=== PATIENT | male | born 1980 | race African-American/Black ===

== ENCOUNTER 2020-02-29 12:36 | Emergency (ER) | payer OTHER, SELFPAY ==
[2020-02-29 13:12] VITALS: BP 105/54; PULSE 73; RESP 18; TEMP 36.8; O2SAT 94; BMI 28.1
--- NOTE | 2020-02-29 13:24 | ED.HEATRA ---
HPI - Head Injury General Chief complaint: Head Injury Stated complaint: laceration above rt eye Time Seen by Provider: 02/29/20 13:23 Source: other (Health Aid) Mode of arrival: ambulatory Limitations: other (Menatl Health Issues) History of Present Illness HPI Narrative: 39 year old male brought in by health care worker s/p fall last night. He hit his head on the bed, now with headache and lac to right eyebrow. Per health care worker he did not lose conscipsness however patient is saygin he did [poor historian] Complaint: head injury Onset (ago): hour(s) (12) Mechanism of Injury: fall Place: home Loss of Consciousness: no Location of injury: face Severity: moderate Severity scale (1-10): 5 Quality: dull and aching Radiation: none Other Injuries: none Associated symptoms: other (headache) Related Data Allergies Allergy/AdvReac Type Severity Reaction Status Date / Time Penicillins [PENICILLINS] Allergy Unknown RASH Verified 02/29/20 13:12 Review of Systems Constitutional: Constitutional: Reports fever(s) (subjective), Denies headache(s) and Denies weakness Eyes: Eyes: Denies change in vision and Denies eye pain ENT: Reports Normal hearing present, Denies headache(s) and Denies sore throat Cardiovascular: Cardiovascular: Denies chest pain, Denies palpitations and Denies dyspnea Respiratory: Respiratory: Denies chest congestion, Denies cough, Denies dyspnea and Denies wheezing Gastrointestinal: Gastrointestinal: Denies abdominal pain, Denies change in bowel habits, Denies constipation, Denies diarrhea, Denies nausea and Denies vomiting Genitourinary: Genitourinary: Denies dysuria, Denies flank pain, Denies urinary frequency and Denies urinary incontinence Musculoskeletal: Musculoskeletal: Denies back pain, Denies myalgias and Denies muscle weakness Integumentary/Breasts: Skin/Breast: Denies change in hair, Denies pruritus, Denies erythema, Denies rash, Denies unusual bruising and Denies wounds Neurologic: Reports Normal hearing present, Denies headache(s), Denies memory loss, Denies paresthesias, Denies tremor(s) and Denies weakness Psychiatric: Psychiatric: Denies anxiety, Denies depression, Denies irritability and Denies memory loss Endocrine: Endocrine: Denies change in body appearance and Denies palpitations Hematologic/Lymphatic: Hematologic/Lymphatic: Denies easy bleeding, Denies easy bruising and Denies lymphadenopathy Allergic/Immunologic: Allergic/Immunologic: Denies wheezing PMFSH Past Medical History Medical History (Updated 02/29/20 @ 15:26 by LAURENCE Brady) Anxiety Autism Intellectual disability Intermittent explosive disorder in adult Social History Social History Advance Directives: No Advance Directives Information Provided: No Physical Exam Vital Signs: Vital Signs: Last Vital Signs Temp 98.2 F 02/29/20 13:12 Pulse 73 02/29/20 13:12 Resp 18 02/29/20 13:12 BP 105/54 L 02/29/20 13:12 Pulse Ox 94 02/29/20 13:12 Body Mass Index 28.1 Neuro: Cranial nerves: Yes Normal hearing present Course Course Course Narrative: 39 year old male comes in s.p fall last night. Headache and head lac. Discussed with my attending, will obtain imaging and then suture his lac Reevaluation(s) Reevaluation #1: Would not cooperate with suture repair depsite help from aid and ER staff. Changed course of action from sutures to glue Procedures Procedure Narrative Procedure Narrative: Was not able to suture due to uncooperative agitated patient. Agreed that gluing with steri strips would be okay as this lac occurred ? 12 hours ago. Are cleaned with betadine and sterile water. Dried off with sterile towel, dermabond applied generouslym egdes of lac were approximated and held together until glue started to take affect. Steristrips placed to secure and protect glue. Laceration Laceration 1: Site: face Size (cm): 3 Description: linear MDM - Head Injury MDM Narrative Medical decision making narrative: Lac to forehead s/p fall. Medical Records Attestation: I reviewed the patient's medical records. Imaging Data CT scan - head: Radiologist's impression: [address] [address] [address] Scan Report Signed Patient: Samuel PatrickMR#: [id number] : 1980Acct:[id number] Age/Sex: 39 / MADM Date: 02/29/20 Loc: HO.ED Attending Dr: Ordering Physician: ALEJANDRO CORTES Date of Service: 02/29/20 Procedure(s): CT head/brain wo con Accession Number(s): [id number] cc: ALEJANDRO CORTES~ EXAMINATION: CT HEAD WITHOUT CONTRAST CLINICAL INFORMATION: Headache, pain after fall. COMPARISON: None. TECHNIQUE: Contiguous helical images of the brain were obtained without IV contrast. Multiplanar reconstructions were performed. DLP: 813 mGy-cm. FINDINGS: There are no pathologic extra-axial fluid collections. The lateral, third, fourth ventricles are nondilated and concordant with the appearance of the sulci. There is no evidence for acute intraparenchymal hemorrhage or infarct. There is neither mass nor mass effect. There is no shift of midline structures. The paranasal sinuses and mastoid air cells are clear. There are no osseous lesions. CT/CT head/brain wo con IMPRESSION: No evidence for acute intracranial injury. Automated exposure control (Care Dose) Adjustment of the mA and/or kv according to patient size (this includes techniques or standardized protocols for targeted exams where dose is matched to indication / reason for exam; i.e. extremities or head). Dictated By:VERNELL MOON MD Signed By:<Electronically signed by VERNELL MOON MD in OV>02/29/20 1502 DD/ 1323 TD/TT: Corporate Banking Officer: WP Discharge Plan Discharge Clinical Impression: Laceration Patient Disposition: Home, Self-Care Instructions: Laceration (ED), Skin Adhesive Care (ED), Steristrips (ED) Additional Instructions: May have tylenol for any pain control
== END 2020-02-29 15:55 | disposition home or self-care (01) ==
PROVIDERS: Emergency Provider Emergency Medicine; PCP Internal Medicine
DX: S01.81XA Laceration without foreign body of other part of head, initial encounter (principal); W01.190A Fall on same level from slipping, tripping and stumbling with subsequent striking against furniture, initial encounter; Y93.9 Activity, unspecified; Y92.003 Bedroom of unspecified non-institutional (private) residence as the place of occurrence of the external cause; Y99.9 Unspecified external cause status
CPT/HCPCS: 12013; 70450; 99284

== ENCOUNTER → 2020-08-18 14:06 | Outpatient (REF) | payer OTHER, SELFPAY ==
--- NOTE | 2020-08-18 14:00 | CA_ITS ---
Transthoracic Echocardiogram Amended Patient (Last, First, Middle): Samuel Patrick, Gender: Male Date of : 1980 Age: 39 Procedure Date: 08/18/2020 Procedure Type: Transthoracic Echocardiogram Location: OP Height: 170.18 cm Weight: 99.79 kg BSA: 2.11 m2 Heart Rate: bpm BP: 120 / 72 mmHg Belt Cleaner: TENZIN Referring MD: Nupur DANG Bowling Pin Refinisher: Artis Perez MD Symptoms: R01.1 CARDIAC MURMUR Study Quality: Technically Difficult ECG Rhythm: Sinus Conclusions: - 1. Normal LV systolic and diastolic function 2. Aortic valve not well visualized with increased gradient of unclear etiology with mild aortic regurgitation 3. No gross pericardial effusion Findings Left Ventricle Normal left ventricular size, thickness, and systolic function. The visually estimated ejection fraction is between 60-65%. Diastolic function is normal for age. Right Ventricle Normal right ventricular cavity size. Atria The left atrium is normal in size. Interatrial shunt cannot be excluded. The right atrium was not well visualized. Aortic Valve The aortic valve was not well visualized. The peak aortic gradient is 21 mmHg.The mean gradient is 15 mmHg. There is mild aortic valve regurgitation. There is increased gradient across the aortic valve of unclear etiology. Early aortic stenosis cannot be ruled out Mitral Valve Likely normal mitral valve structure and function. There is trace mitral valve regurgitation. There is no mitral valve stenosis. Pulmonic Valve The pulmonic valve was not well visualized. Tricuspid Valve The tricuspid valve was not well visualized. Great Vessels All visible segments of the aorta are normal in size. The pulmonary artery was not well visualized. Venous The inferior vena cava was not well visualized. Pericardium/Pleural There is no evidence of pericardial effusion. Prior Study Comparison No significant change compared to prior study dated: 01/01/2018. Measurements 2D Linear Measurements IVSd: 1.23 0.6-0.9/0.6-1.0 cm LVIDd: 4.68 3.9-5.3/4.2-5.9 cm LVIDd Index: 2.22 2.4-3.2/2.2-3.1 cm/m2 LVIDs: 3.71 2.0-3.6 cm LVPWd: 1.06 0.7-1.1 cm Ao Root: 2.80 2.1-3.5 cm LA Diam: 3.00 2.7-3.8/3.0-4.0 cm LAIDs Index: 1.42 1.5-2.3 cm/m2 LV Mass: 245.55 67-162/88-224 g LV Mass Index: 116.37 43-95/49-115 g/m2 LVOT Diam: 2.20 3.0+(-)1.3 cm 2D Volumes LA Vol: 15.70 2D Systolic Function EF 4C: 71.00 >55% Mitral Valve MV Pk E: 0.72 MV PK A: 0.61 MV Decel Time: 127.00 E/A: 1.20 PHT: 37.00 MVA PHT: 5.95 Decel Person: 5.66 Aortic Valve AoV Pk Miguel Angel: 2.27 AoV Mn Miguel Angel: 1.79 AoV VTI: 0.46 AoV Pk Grad: 21.00 Aov Mn Grad: 15.00 PORTIA Cont.VTI: 2.21 AI Pk Miguel Angel: 4.67 AI Person: 2.32 LVOT LVOT Pk Miguel Angel: 1.54 LVOT Mn Miguel Angel: 1.10 LVOT VTI: 0.27 LVOT Pk Grad: 9.00 LVOT Mn Grad: 6.00 LVOT Diam: 2.20 LVOT Area: 3.80 Diastolic Function MV Pk E: 0.72 MV Pk A: 0.61 E/A: 1.20 Great Vessels Aorta Ao Root-2D: 2.80 2.0-3.7 cm Ao Asc: 2.90 2.1-3.4 cm Updated in Other Vendor System with Status of Final Artis Perez MD electronically signed on 08/19/2020 1:02:57 PM with status of Final
== END ==
LOC: HO.CARD 14:06
PROVIDERS: PCP Internal Medicine; Visit Provider Physician Assistant
DX: R01.1 Cardiac murmur, unspecified (principal)
CPT/HCPCS: 93306

== ENCOUNTER → 2021-11-17 09:39 | Outpatient (BNVA) | payer OTHER, SELFPAY | PROVIDERS: PCP Internal Medicine; Referring Provider Internal Medicine; Visit Provider Internal Medicine Cardiovascular Disease | DX: I48.92 Unspecified atrial flutter (principal) | CPT/HCPCS: 93005 ==

== ENCOUNTER → 2022-01-05 14:09 | Outpatient (REF) | payer OTHER, SELFPAY ==
--- NOTE | 2022-01-05 14:13 | HM_ITS ---
Conclusion: 1. Patient was monitored for total period of 4 days and 12 hours 2. Baseline rhythm was normal sinus rhythm with average heart of 79 beats per minute 3. Total of 443 PACs accounting for 0.13% of total beats account for occasional PACs 4. Rare PVCs noted with total burden of 0.07% 5. No significant pauses or bradycardia noted 6. No patient reported events MTDD
--- NOTE | 2022-01-05 14:13 | CA_ITS ---
Transthoracic Echocardiogram Amended Patient (Last, First, Middle): Samuel Patrick, Gender: Male Date of : 1980 Age: 41 Procedure Date: 01/05/2022 Procedure Type: Transthoracic Echocardiogram Location: OP Height: 172. cm Weight: 108. kg BSA: 2.19 m2 Heart Rate: bpm BP: 140 / 80 mmHg Supervisor Transferring And Boxing: LATANYA Referring MD: Mike Ward MD Symptoms: I48.92 - Unspecified atrial flutter Study Quality: Fair ECG Rhythm: Sinus Conclusions: - Small calcified structure attached to the aortic valve. Differentials include vegetation and we will start with checking blood cultures. Findings Left Ventricle Normal left ventricular size, thickness, systolic function, and wall motion. The visually estimated ejection fraction is between 55-60%. There is no evidence of regional wall motion abnormalities. Diastolic function is normal for age. Right Ventricle Normal right ventricular cavity size and systolic function. Atria Both atria are normal in size. Aortic Valve There is a normal trileaflet aortic valve. There is no aortic valve stenosis. There is mild to moderate aortic valve regurgitation. small mobile mass attached to the aortic valve. Mitral Valve The mitral valve appears normal. There is no mitral valve regurgitation. There is no mitral valve stenosis. Pulmonic Valve The pulmonic valve is likely normal. Tricuspid Valve Normal tricuspid valve structure and function. There is trace tricuspid valve regurgitation. Normal right atrial pressure. There is no evidence of pulmonary hypertension. Great Vessels The pulmonary artery was not well visualized. There is mild dilatation of the ascending aorta measuring 3.40 cm. Venous The inferior vena cava is normal in size and collapses greater than 50% with inspiration. Pericardium/Pleural There is no evidence of pericardial effusion. Prior Study Comparison Changes noted compared to prior study dated: 08/18/2021. Small calcified structure attached to the aortic valve. Measurements 2D Linear Measurements IVSd: 1.10 0.6-0.9/0.6-1.0 cm LVIDd: 4.75 3.9-5.3/4.2-5.9 cm LVIDd Index: 2.17 2.4-3.2/2.2-3.1 cm/m2 LVIDs: 3.09 2.0-3.6 cm LVPWd: 0.95 0.7-1.1 cm Ao Root: 3.80 2.1-3.5 cm LA Diam: 3.50 2.7-3.8/3.0-4.0 cm LAIDs Index: 1.60 1.5-2.3 cm/m2 LV Mass: 215.12 67-162/88-224 g LV Mass Index: 98.23 43-95/49-115 g/m2 LVOT Diam: 2.30 3.0+(-)1.3 cm 2D Volumes LA Vol: 15.80 2D Systolic Function EF 4C: 48.70 >55% EF 2C: 54.70 >55% EF BiP: 51.10 >55% Mitral Valve MV Pk E: 0.92 MV PK A: 0.84 MV Decel Time: 213.00 E/A: 1.10 E'Lateral: 10.20 E'Medial: 9.79 E/E' Med: 9.40 E/E' Lat: 9.10 PHT: 62.00 MVA PHT: 3.55 Decel Bell: 4.34 Aortic Valve AoV Pk Miguel Angel: 1.96 AoV Mn Miguel Angel: 1.41 AoV VTI: 0.35 AoV Pk Grad: 15.00 Aov Mn Grad: 9.00 PORTIA Cont.VTI: 4.08 AI Pk Miguel Angel: 4.46 AI Bell: 2.11 LVOT LVOT Pk Miguel Angel: 1.93 LVOT Mn Miguel Angel: 1.33 LVOT VTI: 0.34 LVOT Pk Grad: 15.00 LVOT Mn Grad: 8.00 LVOT Diam: 2.30 LVOT Area: 4.15 Diastolic Function MV Pk E: 0.92 MV Pk A: 0.84 E/A: 1.10 E'Medial: 9.79 E/E' Med: 9.40 E' Laterial: 10.20 E/E' Lat: 9.10 Right Ventricle TAPSE (mm): 18.00 Tricuspid Valve TR Pk Miguel Angel: 2.00 TR Pk Grad: 16.00 RA Press: 2.00 RVSP: 19.00 Great Vessels Aorta Ao Root-2D: 3.80 2.0-3.7 cm Ao Asc: 3.40 2.1-3.4 cm Pulmonary Valve PV Pk Miguel Angel: 1.07 Peak PV Grad: 5.00 Updated in Other Vendor System with Status of Final Mike Ward MD electronically signed on 01/20/2022 9:29:01 AM with status of Final
== END ==
LOC: HO.CARD 14:09
PROVIDERS: Visit Provider Internal Medicine Cardiovascular Disease
DX: I48.92 Unspecified atrial flutter (principal)
CPT/HCPCS: 93242; 93306

== ENCOUNTER 2022-01-06 11:39 | Outpatient (REF) | payer OTHER, SELFPAY ==
[2022-01-06 13:22] LABS: TSH reflex Free T4 3.15 uIU/mL (0.32-4.0)
== END 2022-01-06 11:40 | disposition home or self-care (01) ==
LOC: HO.LAB 11:39
PROVIDERS: PCP Internal Medicine; Visit Provider Internal Medicine Cardiovascular Disease
DX: I48.92 Unspecified atrial flutter (principal); I35.8 Other nonrheumatic aortic valve disorders
CPT/HCPCS: 36415; 84443; 87040

== ENCOUNTER → 2022-07-12 13:12 | Outpatient (BNVA) | payer SELFPAY | PROVIDERS: PCP Internal Medicine; Referring Provider Internal Medicine; Visit Provider Internal Medicine Cardiovascular Disease | DX: I35.1 Nonrheumatic aortic (valve) insufficiency (principal); I48.92 Unspecified atrial flutter; E78.5 Hyperlipidemia, unspecified | CPT/HCPCS: 93005 ==

== ENCOUNTER 2023-01-02 13:20 | Outpatient (AMB) | payer OTHER, SELFPAY ==
[2023-01-02 13:23] VITALS: BP 112/74; PULSE 76; BMI 34.6
--- NOTE | 2023-01-02 13:23 | A.OFFVIS_ITS ---
Intake Vital Signs 01/02/23 13:23 Height 5 ft 7 in Weight 220 lb 14.451 oz BMI 34.6 BP 112/74 Blood Pressure Location Lt brachial Position Sitting Pulse 76 Pulse Source Pulse Oximeter Intake Visit Reasons: 6 months f/ up after testing Intake Note: 6 month follow up after testing. Metrologist Required: No Accompanied by: Employee Allergies Penicillins [PENICILLINS] Allergy (Unknown, Verified 01/02/23 13:26) RASH Medication List - Last Reconciled 01/02/23 by Mike Ward MD acetaminophen ER (Tylenol 8 Hour) 650 mg PO Q8H atorvastatin 40 mg PO BEDTIME dextromethorphan-guaifenesin 10-200 mg 2 tab-caps PO Q4-6H PRN diltiazem HCl ER 120 mg PO QAM divalproex (Depakote) 750 mg PO ONCE divalproex (Depakote) 1,000 mg PO ONCE fenofibrate 54 mg PO DAILY Lactobac. rhamnosus GG-inulin 10 billion cell -200 mg ([facility] [employer] [facility]) caps PO loratadine (Allergy Relief (loratadine)) 10 mg PO DAILY lorazepam (Ativan) 0.5 mg PO DAILY PRN lorazepam (Ativan) 1 mg PO BID PRN jqxzkkfa-fqg-huutqte sulfate 4.5 mg iron (One Daily Multivitamins with Minerals) tabs PO DAILY nystatin (Nyamyc) 1 appl topical DAILY paroxetine HCl (Paxil) 40 mg PO DAILY polyethylene glycol 3350 (Miralax) 17 grams PO DAILY psyllium husk 0.52 grams PO TID HPI HPI Comments History of Present Illness Details 42-year-old gentleman who is here for fo llow-up. He has background history of autism and cerebral palsy. He was diagnosed with atrial flutter previously but this was episodic and he has not been atrial flutter since then. History is limited from the patient in general. He was seen and was referred for echocardiography and Holter monitoring. Holter did not show any significant arrhythmia. He has been on Cardizem. Echocardiography showed that he has [id number] aortic insufficiency as well as calcification on aortic valve. In some views it looks like a calcified structure attached to the valve. I have reviewed all his previous echocardiogram going back to 2017 and he had some calcification present on the aortic valve. I also did blood cultures on him to make sure he does not have any active blood stream infection and blood cultures were normal. He is back for follow-up. He is doing well. No concerns currently. 01/02/2023: He returns for follow-up. Bl ood pressure control is good. Denying any symptoms. On last visit we advised him to get a fasting lipid panel. It appears he did not have any blood workup. [facility] Medical History (Updated 07/12/22 @ 13:40 by Mike Ward MD) Intellectual disability Intermittent explosive disorder in adult Autism Anxiety Social History Alcohol intake: never Patient Tobacco Use Status: Never used Tobacco Review of Systems Const Denies weakness ENT Denies dizziness Card Denies chest pain, Denies chest pain with activity, Denies syncope, Denies rapid heart rate, Denies pedal edema, Denies edema, Denies leg edema, Denies lightheadedness, Denies palpitations, Denies dyspnea, Denies dyspnea on exertion and Denies orthopnea Resp Denies cough, Denies dyspnea and Denies dyspnea on exertion GI Denies hematochezia and Denies change in stool character Musc Denies abnormal gait, Denies muscle cramps, Denies muscle weakness, Denies numbness, Denies radiating pain into limb and Denies tingling Neuro Denies abnormal gait, Denies dizziness, Denies syncope, Denies numbness, Denies tingling and Denies weakness Endo Denies palpitations Physical Exam Vital Signs: Last Vital Signs Pulse 76 01/02/23 13:23 BP 112/74 01/02/23 13:23 BMI result Body Mass Index 34.6 GENERAL APPEARANCE: in no acute distress NECK: no carotid bruit, no jugular venous distention. SKIN: no suspicious lesions, warm and dry. HEART: no murmurs, regular rate and rhythm. LUNGS: clear to auscultation bilaterally. ABDOMEN: soft, nontender. EXTREMITIES: no edema. PERIPHERAL PULSES: equal. Assessment & Plan Assessment & Plan (1) Hyperlipidemia: Code(s): E78.5 - Hyperlipidemia, unspecified (2) Aortic insufficiency: Code(s): I35.1 - Nonrheumatic aortic (valve) insufficiency (3) Atrial flutter: Code(s): I48.92 - Unspecified atrial flutter Plan [age] gentleman with history of paroxysmal atrial flutter. He has not had any further episodes. Denying any symptoms on follow-up. Blood pressure control is good. He should continue with the Cardizem 120 mg daily. He is on atorvastatin 40 mg as well as fenofibrate 54 mg. He should have fasting lipid panel once a year. Follow-up with us in 1 year. Thank you for allowing me to participate in the care of your patient. Please feel free to contact me if you have any questions. Coding Level of Care Code Est Pt Level 3 (96042) Diagnoses Hyperlipidemia E78.5 Aortic insufficiency I35.1 Atrial flutter I48.92
== END 2023-01-02 13:46 | disposition home or self-care (01) ==
PROVIDERS: PCP Internal Medicine; Referring Provider Internal Medicine; Visit Provider Internal Medicine Cardiovascular Disease
DX: E78.5 Hyperlipidemia, unspecified (principal); I35.1 Nonrheumatic aortic (valve) insufficiency; I48.92 Unspecified atrial flutter
CPT/HCPCS: 99213

== ENCOUNTER → 2023-01-02 13:20 | Outpatient (BNVA) | payer OTHER, SELFPAY | PROVIDERS: PCP Internal Medicine; Referring Provider Internal Medicine; Visit Provider Internal Medicine Cardiovascular Disease ==

== ENCOUNTER 2023-03-23 13:39 | Outpatient (AMB) | payer OTHER, SELFPAY ==
[2023-03-23 13:47] VITALS: BP 120/72; PULSE 72; BMI 34.5
--- NOTE | 2023-03-23 13:47 | MHC.OFFVIS ---
Intake Vital Signs 03/23/23 13:47 Height 5 ft 7 in Weight 220 lb 7.396 oz BMI 34.5 BP 120/72 Blood Pressure Location Lt brachial Position Sitting Pulse 72 Pulse Source Pulse Oximeter Intake Visit Reasons: FU/DC from ER/SVT Accounts Receivable Accountant: Accounts Receivable Accountant Present Accompanied by: Unknown Allergies Penicillins [PENICILLINS] Allergy (Unknown, Verified 03/23/23 13:49) RASH Medication List - Last Reconciled 03/23/23 by KARLO Gandhi acetaminophen ER (Tylenol 8 Hour) 650 mg PO Q8H atorvastatin 40 mg PO BEDTIME dextromethorphan-guaifenesin 10-200 mg 2 tab-caps PO Q4-6H PRN diltiazem HCl ER 120 mg PO QAM divalproex (Depakote) 750 mg PO ONCE divalproex (Depakote) 1,000 mg PO ONCE fenofibrate 54 mg PO DAILY Lactobac. rhamnosus GG-inulin 10 billion cell -200 mg ([facility] [place]) caps PO loratadine (Allergy Relief (loratadine)) 10 mg PO DAILY lorazepam (Ativan) 0.5 mg PO DAILY PRN lorazepam (Ativan) 1 mg PO BID PRN pkgfbdcf-dhf-kcxkaru sulfate 4.5 mg iron (One Daily Multivitamins with Minerals) tabs PO DAILY nystatin (Nyamyc) 1 appl topical DAILY paroxetine HCl (Paxil) 40 mg PO DAILY polyethylene glycol 3350 (Miralax) 17 grams PO DAILY psyllium husk 0.52 grams PO TID HPI FU/DC from ER/SVT HPI Details Samuel is a 42-year-old male with past medical history obesity, hyperlipidemia, atrial flutter, moderate aortic regurgitation who was recently admitted to [facility] with heart palpitations. He was found to have SVT with heart rate to 60 and hypotension. Cardioversion was done with successful return to normal sinus rhythm. He was monitored on telemetry. Diltiazem dose increased to 180 mg daily. Today he reports that he has not had heart palpitations since his hospital discharge. On the day of his admission he says the palpitations occurred suddenly and persisted. He recalls feeling some mild shortness of breath at that time. No presyncope, syncope, falls. No chest discomfort at rest or with activity. He has not been having any PND, orthopnea or edema. He is taking his medications as directed. boom stick worker is present with him. [facility], [facility] Medical History Intellectual disability Intermittent explosive disorder in adult Autism Anxiety Social History Alcohol intake: never Patient Tobacco Use Status: Never used Tobacco Review of Systems Const All systems reviewed & are unremarkable except as noted in HPI and below and Other ENT Denies dizziness Card Denies chest pain, Denies chest pain at rest, Denies chest pain with activity, Denies rapid heart rate, Denies pedal edema, Denies edema, Denies leg edema, Denies lightheadedness, Reports palpitations, Denies dyspnea, Denies dyspnea on exertion and Denies orthopnea Resp Denies cough, Denies dyspnea and Denies dyspnea on exertion GI Denies hematochezia and Denies change in stool character Musc Denies abnormal gait, Denies limited range of motion, Denies muscle cramps, Denies muscle weakness, Denies numbness, Denies radiating pain into limb, Denies stiffness and Denies tingling Neuro Denies abnormal gait, Denies dizziness, Denies numbness and Denies tingling Endo Reports palpitations Physical Exam Vital Signs: Last Vital Signs Pulse 72 03/23/23 13:47 BP 120/72 03/23/23 13:47 BMI result Body Mass Index 34.5 Const General: cooperative, comfortable and no acute distress Orientation/consciousness: patient oriented x3 Neck Neck: Yes normal visual inspection Resp Effort & Inspection: normal respiratory effort Auscultation: clear to auscultation bilaterally, no crackles, no rales, no rhonchi and no wheezes Cardio Jugular venous distension: no JVD Rate: regular rate Rhythm: regular rhythm Heart sounds: S1 normal heart sound present, S2 normal heart sound present, Murmur heart sound present (systolic murmur noted) and no rubs Neuro General: patient oriented x3 Extrem General: Yes normal to inspection, No no pedal edema and No calf tenderness Psych Other: intellectual disability Appearance: grossly normal Mental Status: mental status grossly normal Speech and movement: Normal speech and movement present Assessment & Plan Assessment & Plan (1) Atrial fibrillation: Code(s): I48.91 - Unspecified atrial fibrillation Plan: History of atrial flutter, paroxysmal. Last echo in our system 01/05/2022 shows EF 55-60%, no wall motion abnormalities, small calcified structure tach to aortic valve, [id number] aortic regurgitation. Last Holter monitor done 01/05/2022 for 4 days showed sinus rhythm with average heart rate 79, occasional PACs and rare PVCs. Recent [facility] admission for reported SVT rate 160. It is possible this was atrial flutter, with 1-1 block. He was hypotensive and underwent cardioversion with successful conversion back to sinus rhythm. [facility] discharge note reviewed. Note does not mention atrial fibrillation however EKG done on him during admission 03/13/2023 shows atrial fibrillation, rate 116. On discharge his diltiazem dose had been increased from 120 mg of do 180 mg daily. He is not on anticoagulation due to low stroke risk, chads Vasc score of 0. Today he reports he has been feeling well with no recurrent heart palpitations. Pulse is regular on examination. No concern for AFib at this time. Will continue on current diltiazem. Will check Holter monitor to assess for recurrent PAF/SVT. Will update echocardiogram to assess EF, valve structures. Cardiology follow-up in 2 months to go over results and adjust meds if needed. (2) Atrial flutter: Code(s): I48.92 - Unspecified atrial flutter Plan: As above (3) SVT (supraventricular tachycardia): Code(s): I47.10 - Supraventricular tachycardia, unspecified Plan: As above. (4) Aortic insufficiency: Code(s): I35.1 - Nonrheumatic aortic (valve) insufficiency Plan: [id number] on last echocardiogram. Murmurs noted on exam. Will update echo. (5) Aortic valve calcification: Code(s): I35.9 - Nonrheumatic aortic valve disorder, unspecified Plan: As above (6) Hospital discharge follow-up: Code(s): Z09 - Encounter for follow-up examination after completed treatment for conditions other than malignant neoplasm Plan: [facility] discharge 03/13/2023 Plan Time spent on chart review, documentation, interview, assessment Orders: Orders ECG 3 day holter monitor Today I47.10 - Supraventricular tachycardia, unspecified, I48.91 - Unspecified atrial fibrillation CA echo transthoracic complete Today I35.1 - Nonrheumatic aortic (valve) insufficiency, I35.9 - Nonrheumatic aortic valve disorder, unspecified, I48.91 - Unspecified atrial fibrillation Coding Level of Care Code Est Pt Level 4 (71407) Diagnoses Atrial fibrillation I48.91 Atrial flutter I48.92 SVT (supraventricular tachycardia) I47.10 Aortic insufficiency I35.1 Aortic valve calcification I35.9 Hospital discharge follow-up Z09 Time Spent (min) 28
== END 2023-03-23 14:42 | disposition home or self-care (01) ==
PROVIDERS: PCP Internal Medicine; Visit Provider Nurse Practitioner Family
DX: I48.91 Unspecified atrial fibrillation (principal); I48.92 Unspecified atrial flutter; I47.10 Supraventricular tachycardia, unspecified; I35.1 Nonrheumatic aortic (valve) insufficiency; I35.9 Nonrheumatic aortic valve disorder, unspecified; Z09 Encounter for follow-up examination after completed treatment for conditions other than malignant neoplasm
CPT/HCPCS: 99214

== ENCOUNTER → 2023-03-23 13:39 | Outpatient (BNVA) | payer OTHER, SELFPAY | PROVIDERS: PCP Internal Medicine; Visit Provider Nurse Practitioner Family ==

== ENCOUNTER → 2023-04-14 09:51 | Outpatient (REF) | payer OTHER, SELFPAY ==
--- NOTE | 2023-04-14 09:56 | HM_ITS ---
* Total monitoring time 3 days. * Underlying rhythm is sinus with an average rate of 68/Min. Range 50 to 156/Min. * Rare supraventricular ectopy. * Rare ventricular ectopy. Occasional couplets, 1 triplet. Evidence of bigeminy. 2 short runs. Longest 4 beats. * No significant pauses or AV blocks. * No patient markers or events in diary. MTDD
--- NOTE | 2023-04-14 09:56 | CA_ITS ---
Transthoracic Echocardiogram Patient (Last, First, Middle): Samuel Patrick, Gender: Male Date of : 1980 Age: 42 Procedure Date: 04/14/2023 Procedure Type: Transthoracic Echocardiogram Location: OP Height: 172.72 cm Weight: 105.01 kg BSA: 2.18 m2 Heart Rate: 69 bpm BP: 125 / 70 mmHg Assisted Living Coordinator: LATANYA Referring MD: Marily Vela NP-Grazyna Psychological Aide: Artis Perez MD Symptoms: I48.91 - Unspecified atrial fibrillation Study Quality: Technically Difficult ECG Rhythm: Sinus Conclusions: - 1. Normal LV ejection fraction of 60 65% 2. Mild calcific changes noted in the aortic well although not well visualized, mild aortic regurgitation noted 3. Mildly dilated ascending aorta 4.1 cm Findings Procedure Information The quality of the study was technically difficult. The study quality is limited by the patients inability to tolerate the test. Left Ventricle Normal left ventricular size, thickness, and systolic function. The visually estimated ejection fraction is between 60-65%. Spectral Doppler is indicative of a normal filling pattern. Right Ventricle Normal right ventricular cavity size and systolic function. Atria The left atrium is normal in size. Interatrial shunt cannot be excluded. The right atrium is normal in size. Aortic Valve The aortic valve was not well visualized. There is mild calcification of the aortic valve. There is moderate thickening of the aortic valve. The peak aortic gradient is 14 mmHg.The mean gradient is 9 mmHg. There is mild aortic valve regurgitation. Mitral Valve The mitral valve was not well visualized. There is no mitral valve regurgitation. There is no mitral valve stenosis. Pulmonic Valve The pulmonic valve was not well visualized. Tricuspid Valve The tricuspid valve was not well visualized. Tricuspid regurgitation envelope is inadequate for calculation of right ventricular systolic pressure. Normal right atrial pressure. Great Vessels The pulmonary artery was not well visualized. There is mild dilatation of the ascending aorta measuring 4.10 cm. Venous The inferior vena cava is normal in size and collapses greater than 50% with inspiration. Pericardium/Pleural The pericardium was not well visualized. Measurements 2D Linear Measurements IVSd: 1.10 0.6-0.9/0.6-1.0 cm LVIDd: 4.82 3.9-5.3/4.2-5.9 cm LVIDd Index: 2.21 2.4-3.2/2.2-3.1 cm/m2 LVIDs: 3.30 2.0-3.6 cm LVPWd: 1.15 0.7-1.1 cm LA Diam: 3.70 2.7-3.8/3.0-4.0 cm LAIDs Index: 1.70 1.5-2.3 cm/m2 LV Mass: 251.07 67-162/88-224 g LV Mass Index: 115.17 43-95/49-115 g/m2 LVOT Diam: 2.50 3.0+(-)1.3 cm 2D Systolic Function EF 4C: 62.20 >55% EF 2C: 61.00 >55% EF BiP: 62.40 >55% Mitral Valve MV Pk E: 0.91 MV PK A: 0.48 MV Decel Time: 203.00 E/A: 1.90 E'Lateral: 8.27 E'Medial: 8.27 E/E' Med: 11.00 E/E' Lat: 11.00 PHT: 60.00 MVA PHT: 3.67 Decel Graham: 4.47 Aortic Valve AoV Pk Miguel Angel: 1.89 AoV Mn Miguel Angel: 1.39 AoV VTI: 0.39 AoV Pk Grad: 14.00 Aov Mn Grad: 9.00 PORTIA Cont.VTI: 4.42 AI Pk Miguel Angel: 4.46 AI Graham: 2.28 LVOT LVOT Pk Miguel Angel: 1.75 LVOT Mn Miguel Angel: 1.24 LVOT VTI: 0.35 LVOT Pk Grad: 12.00 LVOT Mn Grad: 7.00 LVOT Diam: 2.50 LVOT Area: 4.91 Diastolic Function MV Pk E: 0.91 MV Pk A: 0.48 E/A: 1.90 E'Medial: 8.27 E/E' Med: 11.00 E' Laterial: 8.27 E/E' Lat: 11.00 Right Ventricle TAPSE (mm): 22.90 TVS' Miguel Angel: 14.90 Great Vessels Aorta Sinus of Valsalva: 3.50 2.0-3.5 cm Ao Asc: 4.10 2.1-3.4 cm Pulmonary Valve PV Pk Miguel Angel: 1.33 Peak PV Grad: 7.00 Updated in Other Vendor System with Status of Final Artis Perez MD electronically signed on 04/14/2023 1:54:49 PM with status of Final
== END ==
LOC: HO.CARD 09:51
PROVIDERS: PCP Internal Medicine; Visit Provider Nurse Practitioner Family
DX: I48.91 Unspecified atrial fibrillation (principal); I35.1 Nonrheumatic aortic (valve) insufficiency; I47.10 Supraventricular tachycardia, unspecified
CPT/HCPCS: 93242; 93306

== ENCOUNTER → 2023-04-14 09:56 | Outpatient (BNV) | payer OTHER, SELFPAY | PROVIDERS: PCP Internal Medicine; Visit Provider Internal Medicine Cardiovascular Disease | DX: I47.10 Supraventricular tachycardia, unspecified (principal) | CPT/HCPCS: 93244; 93306 ==

== ENCOUNTER 2023-04-21 13:28 | Outpatient (REF) | payer OTHER, SELFPAY ==
[2023-04-21 14:27] LABS: Valproate 52.6 mcg/mL (50.0-100.0)
[2023-04-21 14:32] LABS: Alanine Aminotransferase 17 U/L (0-40); Albumin Level 4.1 g/dL (3.5-5.0); Alkaline Phosphatase 40 U/L (39-117); Aspartate Amino Transferase 16 U/L (5-37); Bilirubin Direct 0.1 mg/dL (0.0-0.5); Bilirubin Total 0.4 mg/dL (0.0-1.0); Total Protein 7.3 g/dL (6.5-8.0)
== END 2023-04-21 13:29 | disposition home or self-care (01) ==
LOC: HO.LAB 13:28
PROVIDERS: PCP Internal Medicine; Visit Provider General Practice
DX: F84.0 Autistic disorder (principal); F41.1 Generalized anxiety disorder; Z79.899 Other long term (current) drug therapy
CPT/HCPCS: 36415; 80076; 80164

== ENCOUNTER 2023-05-29 13:11 | Outpatient (AMB) | payer OTHER, MEDICAID, SELFPAY ==
[2023-05-29 13:32] VITALS: BP 114/48; PULSE 72; BMI 35.4
--- NOTE | 2023-05-29 13:32 | A.OFFVIS_ITS ---
Intake Vital Signs 05/29/23 13:32 Height 5 ft 7 in Weight 225 lb 12.054 oz BMI 35.4 BP 114/48 L Blood Pressure Location Rt brachial Pulse 72 Pulse Source Pulse Oximeter Intake Visit Reasons: 2 mth fu Adult Education Teacher Required: No Grading Machine Operator: Grading Machine Operator Present Allergies Penicillins [PENICILLINS] Allergy (Unknown, Verified 05/29/23 13:34) RASH Medication List - Last Reconciled 05/29/23 by KARLO Gandhi acetaminophen ER (Tylenol 8 Hour) 650 mg PO Q8H atorvastatin 40 mg PO BEDTIME dextromethorphan-guaifenesin 10-200 mg 2 tab-caps PO Q4-6H PRN diltiazem HCl 180 mg PO DAILY divalproex (Depakote) 750 mg PO ONCE divalproex (Depakote) 1,000 mg PO ONCE fenofibrate 54 mg PO DAILY Lactobac. rhamnosus GG-inulin 10 billion cell -200 mg ([facility]) caps PO loratadine (Allergy Relief (loratadine)) 10 mg PO DAILY lorazepam (Ativan) 0.5 mg PO DAILY PRN lorazepam (Ativan) 1 mg PO BID PRN rdhlchpy-tyn-vpmefpa sulfate 4.5 mg iron (One Daily Multivitamins with Minerals) tabs PO DAILY nystatin (Nyamyc) 1 appl topical DAILY paroxetine HCl (Paxil) 40 mg PO DAILY polyethylene glycol 3350 (Miralax) 17 grams PO DAILY psyllium husk 0.52 grams PO TID HPI 2 mth fu HPI Details Samuel is a 42-year-old male with past medical history obesity, hyperlipidemia, atrial flutter, moderate aortic regurgitation, SVT who presents for follow-up. Today he reports he has been doing well since his last visit in February. He has not had any recurrent fast heartbeats like his prior SVT. He denies any fluttering in his chest. He denies chest discomfort, shortness of breath, palpitations, lightheadedness, presyncope, syncope, PND, orthopnea or edema. He does light physical activity. He takes his meds as directed. 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 [facility] Medical History Intellectual disability Intermittent explosive disorder in adult Autism Anxiety Social History Alcohol intake: never Patient Tobacco Use Status: Never used Tobacco Review of Systems Const All systems reviewed & are unremarkable except as noted in HPI and below ENT Denies dizziness Card Denies chest pain, Denies chest pain at rest, Denies chest pain with activity, Denies rapid heart rate, Denies pedal edema, Denies edema, Denies leg edema, Denies lightheadedness, Denies palpitations, Denies dyspnea, Denies dyspnea on exertion and Denies orthopnea Resp Denies cough, Denies dyspnea and Denies dyspnea on exertion GI Denies hematochezia and Denies change in stool character Musc Denies abnormal gait, Denies limited range of motion, Denies muscle cramps, Denies muscle weakness, Denies numbness, Denies radiating pain into limb, Denies stiffness and Denies tingling Neuro Denies abnormal gait, Denies dizziness, Denies numbness and Denies tingling Endo Denies palpitations Physical Exam Vital Signs: Last Vital Signs Pulse 72 05/29/23 13:32 BMI result Body Mass Index 35.4 Const General: cooperative, healthy appearing, comfortable and no acute distress Orientation/consciousness: patient oriented x3 Neck Neck: Yes normal visual inspection and Yes no JVD Chest Chest palpation & inspection: normal inspection of the chest Resp Effort & Inspection: normal respiratory effort Auscultation: clear to auscultation bilaterally, no crackles, no rales, no rhonchi and no wheezes Cardio Jugular venous distension: no JVD Rate: regular rate Rhythm: regular rhythm Heart sounds: S1 normal heart sound present, S2 normal heart sound present, no murmurs and no rubs GI Inspection: Yes normal to inspection Skin General skin exam: no rashes or lesions noted Neuro General: patient oriented x3 Extrem General: Yes normal to inspection, No no pedal edema and No calf tenderness Psych Appearance: grossly normal Mental Status: mental status grossly normal Speech and movement: Normal speech and movement present Assessment & Plan Assessment & Plan (1) Atrial fibrillation: Code(s): I48.91 - Unspecified atrial fibrillation Plan: History of atrial flutter, paroxysmal. Recent [facility] last fall admission for reported SVT rate 160. It is possible this was atrial flutter, with 1-1 block. He was hypotensive and underwent cardioversion with successful conversion back to sinus rhythm. [facility] discharge note reviewed. Note does not mention atrial fibrillation however EKG done on him during admission 03/13/2023 shows atrial fibrillation, rate 116. On discharge his diltiazem dose had been increased from 120 mg of do 180 mg daily. He is not on anticoagulation due to low stroke risk, chads Vasc score of 0. Echocardiogram done 04/14/2023 showed EF 60-65%, mild calcification of the aortic valve, mild AR, ascending aorta 4.1 cm. Holter monitor done 04/14/2023 for 3 days showed sinus rhythm with average heart rate 68, heart rate range 50 to 156, rare SVE and VE. Today he reports he has been feeling well with no recurrent heart palpitations. Pulse is very regular on exa mination. No concern for AFib at this time. Will continue on current diltiazem. Cardiology follow-up in 6 months, sooner if needed. (2) Atrial flutter: Code(s): I48.92 - Unspecified atrial flutter Plan: As above (3) SVT (supraventricular tachycardia): Code(s): I47.10 - Supraventricular tachycardia, unspecified Plan: As above. (4) Aortic insufficiency: Code(s): I35.1 - Nonrheumatic aortic (valve) insufficiency Plan: Mild aortic regurgitation (5) Aortic valve calcification: Code(s): I35.9 - Nonrheumatic aortic valve disorder, unspecified Plan: Mild aortic valve calcification (6) Hyperlipidemia: Code(s): E78.5 - Hyperlipidemia, unspecified Plan: [place] LDL goal less than 100. He is on atorvastatin. Orders placed for CMP and fasting lipids. Patient informed. Plan Time spent on chart review, documentation, interview, assessment Orders: Orders Lipid Panel Today E78.5 - Hyperlipidemia, unspecified Comprehensive Met. Panel Today E78.5 - Hyperlipidemia, unspecified Coding Level of Care Code Est Pt Level 3 (67456) Diagnoses Atrial fibrillation I48.91 Atrial flutter I48.92 SVT (supraventricular tachycardia) I47.10 Aortic insufficiency I35.1 Aortic valve calcification I35.9 Hyperlipidemia E78.5 Time Spent (min) 24
== END 2023-05-29 13:52 | disposition home or self-care (01) ==
PROVIDERS: PCP Internal Medicine; Visit Provider Nurse Practitioner Family
DX: I48.91 Unspecified atrial fibrillation (principal); I48.92 Unspecified atrial flutter; I47.10 Supraventricular tachycardia, unspecified; I35.1 Nonrheumatic aortic (valve) insufficiency; I35.9 Nonrheumatic aortic valve disorder, unspecified; E78.5 Hyperlipidemia, unspecified
CPT/HCPCS: 99213

== ENCOUNTER → 2023-05-29 13:11 | Outpatient (BNVA) | payer OTHER, SELFPAY | PROVIDERS: PCP Internal Medicine; Visit Provider Nurse Practitioner Family ==

== ENCOUNTER 2023-06-18 18:46 | Emergency (ER) | payer OTHER, SELFPAY ==
--- NOTE | ~2023-06-18 | CT_ITS ---
CT HEAD WITHOUT IV CONTRAST CT CERVICAL SPINE WITHOUT IV CONTRAST INDICATION: Neck trauma. Head trauma. COMPARISON: Head CT 02/29/2020. TECHNIQUE: Multidetector CT acquisitions of the head and cervical spine were obtained without IV contrast. Multiplanar reformats were acquired and utilized for image interpretation. This CT examination was performed using dose optimization techniques as appropriate, variously including the following: *Automated exposure control *Adjustment of mA and/or kV according to patient size (this includes techniques or standardized protocols for targeted exams where dose is matched to indication/reason for exam; i.e. extremities or head) *Use of iterative reconstruction technique FINDINGS: HEAD: There is global cerebral volume loss and there is chronic microangiopathy. There is no intracranial hemorrhage, hydrocephalus, extra-axial surface collection, midline shift, or other herniation pattern. [place] to white matter differentiation is diffusely maintained without evidence of an evolved acute territorial infarct. The basilar cisterns are preserved. No significant soft tissue abnormality. No acute osseous abnormality. Moderate mucosal thickening within the left maxillary sinus, mild mucosal thickening within the right maxillary sinus, and mucosal thickening and a fluid level within the left sphenoid sinus. There is a large left mastoid effusion and significant opacification of the left middle ear cavity. CERVICAL SPINE: There are no acute fractures and there are no acute subluxations. There is multilevel cervical spondylosis. Large anterior disc osteophyte complex at C6-C7. No significant soft tissue abnormality within the neck. The visualized lung apices are clear. CT/CT cervical spine wo IV con IMPRESSION: - No acute intracranial abnormality. There is global cerebral volume loss and there is chronic microangiopathy. - No acute osseous abnormality within the cervical spine. Cervical spondylosis.
--- NOTE | ~2023-06-18 | CT_ITS ---
EXAMINATION: CT CHEST WITHOUT CONTRAST CLINICAL INFORMATION: Fall right posterior rib pain COMPARISON: None available. TECHNIQUE: Multidetector volumetric CT imaging of the chest was done. Axial MIP volume rendering provided. Sagittal and coronal reformatted images were obtained. This CT examination was performed using dose optimization techniques as appropriate, variously including the following: *Automated exposure control *Adjustment of mA and/or kV according to patient size (this includes techniques or standardized protocols for targeted exams where dose is matched to indication/reason for exam; i.e. extremities or head) *Use of iterative reconstruction technique DLP: 2340 mGy-cm FINDINGS: LUNGS/PLEURA: Respiratory motion artifact limits evaluation. Bilateral low lung volumes. No focal consolidation. No large or suspicious pulmonary nodules or masses are noted though evaluation is limited secondary to respiratory motion central airways are patent. No pneumothorax. No large pleural effusion. MEDIASTINUM: Heart is enlarged. No pericardial effusion. No coronary artery calcifications. Suggestion of aneurysmal dilatation of the ascending aorta at the level of the main pulmonary artery measuring 4.1 cm on this nongated noncontrast imaging. The descending aorta at this level measures 2.1 cm. The main pulmonary artery is not enlarged. No enlarged lymph nodes per size criteria. Visualized portions of the thyroid are unremarkable. AXILLA: No lymphadenopathy. UPPER ABDOMEN: Intraluminal gallbladder calculi and sludge. Small hiatal hernia. OSSEOUS STRUCTURES: Multilevel degenerative changes of the thoracolumbar spine. CT/CT chest wo IV con IMPRESSION: 1. No acute process of the chest identified. 2. Suggestion of aneurysmal dilatation of the ascending aorta at the level of the main pulmonary artery measuring 4.1 cm on this nongated noncontrast imaging. 3. Intraluminal gallbladder calculi and sludge. 4. Small hiatal hernia.
[2023-06-18 18:50] VITALS: BP 140/90; PULSE 90; O2SAT 95
[2023-06-18 18:52] VITALS: BP 128/66; PULSE 73; RESP 18; TEMP 36.7; O2SAT 97; BMI 27.4
[2023-06-18 18:57] VITALS: BP 127/68; PULSE 74; PULSE 90; RESP 18; TEMP 36.6; O2SAT 97
--- NOTE | 2023-06-18 19:00 | PC.NURSE ---
[facility]. Pt reports he slipped and fell backwards in shower, does report he felt dizzy prior to fall. Pt denies any LOC, head hit or neck pain. Pt initially says his abdomen hurts, when asked again he denies abdominal pain and reports his head hurt. Pt alert and at baseline, pt is Autistic. Breathing even and unlabored, skin WNL. Pt pleasant and in no outward distress at this time. VSS. Pt placed on bedside vehicle monitor technician, NSR.
--- NOTE | 2023-06-18 19:06 | ECG_ITS ---
Test Reason : FALL Blood Pressure : / mmHG Vent. Rate : 067 BPM Atrial Rate : 067 BPM P-R Int : 134 ms QRS Dur : 092 ms QT Int : 434 ms P-R-T Axes : 060 045 079 degrees QTc Int : 458 ms Normal sinus rhythm with sinus arrhythmia Nonspecific T wave abnormality Abnormal ECG No previous ECGs available Referred By: Keila Pierre Electronically Signed By:ZACHARY SAMANO
--- NOTE | 2023-06-18 19:18 | ED.FALL ---
HPI - Fall General Chief Complaint: Fall Stated Complaint: fell out of shower, 3x3 bruise on back, autistic Time Seen by Provider: 06/18/23 18:52 Source: patient and old records reviewed Mode of arrival: EMS Limitations: other (poor historian) History of Present Illness HPI Narrative: 42 yo male with PMH of SVT, afib not on thinners, developmental delay, aortic insuffiency, HLD, who has changed his story several times but told RN he was dizzy and fell in the shower and denies LOC. But then told me he slipped in the shower and had a LOC. He reports pain in the posterior R ribs and has a bruise in that area. He denies any other pain MD complaint: fall Onset (ago): minute(s) (prior to arrival ) Fall from: standing Fall witnessed: no Place fall occurred: home Loss of consciousness: unsure Prolonged down time: no Symptoms prior to fall: none Context: tripped/slipped (unsure story has changed) Location of injury: chest and back Severity: moderate Quality: dull Associated symptoms (after fall): denies Related Data Home Medications Medication Instructions Recorded Confirmed Lactobacillus rhamnosus GG 10 cap PO 11/17/21 05/29/23 billion cell-inulin 200 mg capsule ([facility]) acetaminophen 650 mg 650 mg PO Q8H 11/17/21 05/29/23 tablet,extended release (Tylenol 8 Hour) atorvastatin 40 mg tablet 40 mg PO BEDTIME 11/17/21 05/29/23 dextromethorphan-guaifenesin 10 2 tab-cap PO Q4-6H PRN 11/17/21 05/29/23 mg-200 mg capsule divalproex 500 mg tablet,delayed 1,000 mg PO ONCE 11/17/21 05/29/23 release (Depakote) divalproex 500 mg tablet,delayed 750 mg PO ONCE 11/17/21 05/29/23 release (Depakote) fenofibrate 54 mg tablet 54 mg PO DAILY 11/17/21 05/29/23 loratadine 10 mg tablet (Allergy 10 mg PO DAILY 11/17/21 05/29/23 Relief (loratadine)) lorazepam 0.5 mg tablet (Ativan) 0.5 mg PO DAILY PRN 11/17/21 05/29/23 lorazepam 1 mg tablet (Ativan) 1 mg PO BID PRN 11/17/21 05/29/23 multivitamin with minerals-ferrous tab PO DAILY 11/17/21 05/29/23 sulfate 4.5 mg iron tablet (One Daily Multivitamins with Minerals) nystatin 100,000 unit/gram topical 1 appl topical DAILY 11/17/21 05/29/23 powder (Nyamyc) paroxetine HCl 40 mg tablet (Paxil) 40 mg PO DAILY 11/17/21 05/29/23 polyethylene glycol 3350 17 gram 17 g PO DAILY 11/17/21 05/29/23 oral powder packet (Miralax) psyllium husk 0.52 gram capsule 0.52 g PO TID 11/17/21 05/29/23 diltiazem HCl 180 mg 180 mg PO DAILY 05/29/23 05/29/23 capsule,extended release 24 hr Previous Rx's Medication Instructions Recorded lidocaine 5 % topical patch 1 patch topical DAILY #30 ea 06/18/23 Allergies Allergy/AdvReac Type Severity Reaction Status Date / Time Penicillins [PENICILLINS] Allergy Unknown RASH Verified 05/29/23 13:34 Review of Systems Review of Systems: Constitutional : No Weight loss, No Fever, No Chills, ENT/Mouth : No Hearing loss, No Ear Pain, No Nasal Congestion, No Sinus Pain, No Hoarseness, No sore throat, No Rhinorrhea, No Swallowing Difficulty Cardiovascular : No Chest Pain, No SOB Respiratory : No Cough, No Dyspnea Gastrointestinal : No Nausea, No Vomiting, No Diarrhea, No abdominal Pain, No Hematochezia, No Melena Genitourinary : No Dysuria, No Urinary Frequency, No Hematuria, No Urinary Incontinence, Musculoskeletal : positive back pain Skin : No Skin Lesions, No rash Neuro : No Weakness, No Numbness, No Paresthesias, no loss of bowel or bladder incontinence, no saddle anesthesia All other systems reviewed and are negative PMFSH Past Medical History Attestation statement: The following information was validated with the patient. Source: old records reviewed Medical History Intellectual disability Intermittent explosive disorder in adult Autism Anxiety Social History Social History Alcohol intake: never Patient Tobacco Use Status: Never used Tobacco Smoked in Last 30 Days: No Use of substances other than those prescribed or required for medical reasons: No Advance Directives: No Advance Directives Information Provided: No Physical Exam Vital Signs: Vital Signs: Last Vital Signs Temp 98.1 F 06/18/23 22:30 Pulse 66 06/18/23 22:30 Resp 18 06/18/23 22:30 BP 119/51 L 06/18/23 22:30 Pulse Ox 98 06/18/23 22:30 O2 Del Method Room Air 06/18/23 22:30 BMI result Body Mass Index 27.4 Appearance: Alert. Oriented to person place and year. No acute distress. Eyes: Pupils equal, round and reactive to light. ENT: Pharynx normal. Atraumatic Neck: Normal inspection. Neck supple. CVS: Normal heart rate and rhythm. Pulses normal. Respiratory: No respiratory distress. Breath sounds normal. Abdomen: Soft and non-tender. Back: R scapular R posterior rib area is a contusion and abrasion noted Skin: Skin warm and dry. Normal skin color. Normal skin turgor. Extremities: No lower extremity edema. No calf ttp Neuro: Oriented X 3. No motor deficit. No sensory deficit. Course Course Course Narrative: has no mastoid ttp on L side L ear has mild AOM will put on antibiotics Reevaluation(s) Reevaluation #1: unsure when covid symptoms started so not a candidate for paxlovid Medications Administered Discontinued Medications Generic Name Dose Route Start Last Admin Trade Name Boomq PRN Reason Stop Dose Admin Acetaminophen 650 mg 06/18/23 21:05 06/18/23 21:34 Acetaminophen 325 Mg Tablet PO 06/18/23 21:06 650 mg ONCE ONE Administration Lidocaine 1 patch 06/18/23 21:05 06/18/23 21:34 Lidocaine 4 % Patch Adh..Patch TRANSDERMA 06/18/23 21:06 1 patch ONCE ONE Administration Protocol Medical Decision Making Medical Decision Making MDM Narrative: 42 yo male with PMH of SVT, afib not on thinners, developmental delay, aortic insuffiency, HLD, here with unwitnessed fall at a [facility] he c/o R thoracic back and R posterior rib pain at this time will need basic labs, CT scan of head/cspine and CT chest. He has no abdominal pain to palpation and denies n/v/d. EKG ordered as well along with labs Differential Diagnosis Differential Diagnoses: The differential diagnosis associated with the presentation includes fall, anemia, dehydration, rib fracture, thoracic fracture Admission/Observation Consideration of admission/observation: Escalation of care including admission/observation considered repeat trop flat, EKG unchanged at baseline has covid but no covid pneumonia no hypoxia and no tachycardia doubt VTE no ICH, fracture, rib fracture thoracic fracture has GB pathology on CT scan but no RUQ pain and LFTs normal Lab Data MDM Lab Attestation statement: I reviewed the patient's lab results. 06/18/23 19:52 06/18/23 19:52 Labs: Lab Results 06/18/23 06/18/23 06/18/23 Range/Units 19:41 19:52 21:17 WBC 4.5 L (4.8-10.8) X10*3/uL RBC 4.53 L (4.60-5.80) X10*6/uL Hgb 12.9 L (14.0-18.0) g/dl Hct 38.0 L (42.0-52.0) % MCV 83.9 (80.0-98.0) fL MCH 28.5 (27.0-33.0) pg MCHC 33.9 (31.0-36.0) g/dl RDW 12.7 (11.0-16.0) % Plt Count 235 (160-400) X10*3/uL MPV 8.7 L (9.4-12.4) fL Immature Gran % (Auto) 0.4 (0.0-0.4) % Neut % (Auto) 53.6 (45-73) % Lymph % (Auto) 35.2 (20-40) % [place] % (Auto) 8.0 (2-11) % Eos % (Auto) 2.4 (0-4) % Baso % (Auto) 0.4 (0-2) % Lymph # (Auto) 1.6 (1.2-4.9) X10*3/uL [place] # (Auto) 0.4 (0.1-1.2) X10*3/uL Eos # (Auto) 0.1 (0.0-0.4) X10*3/uL Baso # (Auto) 0.0 (0.0-0.2) X10*3/uL Abs Immat Gran (auto) 0.02 (0.00-0.03) X10*3/uL Absolute Neuts (auto) 2.4 (2.0-8.3) x10*3/uL Absolute Nucleated RBC 0.000 (0.0-0.012) X10*3/uL Nucleated RBC % (auto) 0.0 (0.0-0.2) /100WBC PT 15.7 H (11.1-13.3) SEC INR 1.3 H (0.9-1.1) Sodium 143 (135-145) mmol/L Potassium 3.7 (3.3-5.1) mmol/L Chloride 107 (96-108) mmol/L Carbon Dioxide 24 (22-29) mmol/L Anion Gap 16 (12-20) BUN 20 H (9-16) mg/dL Creatinine 0.84 (0.5-1.4) mg/dL Estim Creat Clear Calc 111.9 Estimated GFR > 60 Random Glucose 101 (60-115) mg/dL Calcium 9.0 (8.4-10.2) mg/dL Magnesium 2.0 (1.6-2.6) mg/dL Total Bilirubin 0.4 (0.0-1.0) mg/dL Direct Bilirubin 0.2 (0.0-0.5) mg/dL AST 18 (5-37) U/L ALT 16 (0-40) U/L Alkaline Phosphatase 34 L (39-117) U/L Troponin I High Sens 9.9 9.0 (<3.5-35.0) ng/L Total Protein 7.1 (6.5-8.0) g/dL Albumin 3.9 (3.5-5.0) g/dL Lipase 24 (8-78) U/L Valproic Acid 54.3 (50.0-100.0) mcg/mL COVID-19 (SY) Positive A (Negative) COVID-19 Clin Com See Note Independent Interpretation I performed an independent interpretation of an: EKG and CT Scan (no acute trauma) Interpretation: Rate: 67 Rhythm: NSR [place]: normal Normal P waves. Normal IAN. Normal QRS complex. ST T wave : inverted t wave I and aVL, no BLANKA, nonspecific ST T wave changes lateral leads qTC: 458 prior studies: no sig change from priors The study has been interpreted contemporaneously by me. . Radiology Impression Discussion of test interpretation with radiology: I have reviewed the radiologist's reading. Independent Historian Clinical information obtained from an independent historian. History obtained from or confirmed by: EMS and Other ([facility] staff) External Record Review External record reviewed: Office record Prescription Management I considered prescription management with: Antibiotic Discharge Plan Discharge Clinical Impression: COVID-19, Chronic otitis media of left ear Contusion of rib Qualifiers: Encounter type: initial encounter Laterality: unspecified laterality Qualified Code(s): S20.219A - Contusion of unspecified front wall of thorax, initial encounter Fall Qualifiers: Encounter type: initial encounter Qualified Code(s): W19.XXXA - Unspecified fall, initial encounter Patient Disposition: Home, Self-Care Instructions: Ear Infection (ED), Contusion in Adults (ED), Fall Prevention (ED), COVID-19 (Coronavirus Disease 2019) (ED) Additional Instructions: you tested positive for covid 19 but your oxygen levels and labs are normal. you do not have covid pneumonia. your CT scans of your head neck spine and ribs showed no fracture there were incidental findings on CT scan that have nothing to do with today's fall there are stones in your gallbladder you can follow up with your doctor about this you have an aneurysm of the ascending aorta of about 4.1cm your doctor should monitor this return for worsening symptoms, fevers, confusion, difficulty breathing, coughing up blood, sputum, or any other concerns. Prescriptions: New lidocaine 5 % adhesive patch,medicated 1 patch topical DAILY Qty: 30 0RF Rx Instructions: leave on most painful area for up to 12 hrs No Action lorazepam [Ativan] 0.5 mg tablet 0.5 mg PO DAILY PRN lorazepam [Ativan] 1 mg tablet 1 mg PO BID PRN divalproex [Depakote] 500 mg tablet,delayed release (DR/EC) 750 mg PO ONCE divalproex [Depakote] 500 mg tablet,delayed release (DR/EC) 1,000 mg PO ONCE paroxetine HCl [Paxil] 40 mg tablet 40 mg PO DAILY loratadine [Allergy Relief (loratadine)] 10 mg tablet 10 mg PO DAILY atorvastatin 40 mg tablet 40 mg PO BEDTIME [facility] 10 billion cell -200 mg capsule PO dextromethorphan-guaifenesin 10-200 mg capsule 2 tab-cap PO Q4-6H PRN Patient Comments: 20 mg/400mg/10ml every 4 hrs as needed fenofibrate 54 mg tablet 54 mg PO DAILY polyethylene glycol 3350 [Miralax] 17 gram powder in packet 17 g PO DAILY One Daily Multi-Vit w-Mineral 4.5 mg iron tablet PO DAILY nystatin [Nyamyc] 100,000 unit/gram powder 1 appl topical DAILY psyllium husk 0.52 gram capsule 0.52 g PO TID acetaminophen [Tylenol 8 Hour] 650 mg tablet extended release 650 mg PO Q8H Patient Comments: every 4 hrs as needed. diltiazem HCl 180 mg capsule,extended release 24hr 180 mg PO DAILY Interventions: ED Discharge Assessment Last Done: 06/18/23 23:05 Discharge Date/Time: 06/18/23 22:45
[2023-06-18 19:58] LABS: MANUAL DIFF FLAG NO
[2023-06-18 20:01] LABS: Basophils Percent Auto 0.4 % (0-2); Eosinophils Absolute Auto 0.1 X10*3/uL (0.0-0.4); Eosinophils Percent Auto 2.4 % (0-4); Hemoglobin 12.9 g/dl (14.0-18.0); Imm Gran Abs Auto 0.02 X10*3/uL (0.00-0.03); Imm Gran Pct Auto 0.4 % (0.0-0.4); Lymphocytes Absolute Auto 1.6 X10*3/uL (1.2-4.9); Lymphocytes Percent Auto 35.2 % (20-40); Mean Corpuscular HGB Conc 33.9 g/dl (31.0-36.0); Mean Corpuscular Hemoglobin 28.5 pg (27.0-33.0); Mean Corpuscular Volume 83.9 fL (80.0-98.0); Mean Platelet Volume 8.7 fL (9.4-12.4); Monocytes Absolute Auto 0.4 X10*3/uL (0.1-1.2); Neutrophils Absolute Auto 2.4 x10*3/uL (2.0-8.3); Neutrophils Percent Auto 53.6 % (45-73); Platelet Count 235 X10*3/uL (160-400); Red Blood Count 4.53 X10*6/uL (4.60-5.80); Red Cell Distribution Width 12.7 % (11.0-16.0); White Blood Count 4.5 X10*3/uL (4.8-10.8)
[2023-06-18 20:04] LABS: IDNOW Serial# 58CA691E
[2023-06-18 20:05] LABS: COVID-19 Test Positive (Negative)
[2023-06-18 20:07] LABS: INTERNATIONAL NORM RATIO 1.3 (0.9-1.1); Prothrombin Time 15.7 SEC (11.1-13.3)
[2023-06-18 20:13] LABS: Alanine Aminotransferase 16 U/L (0-40); Albumin Level 3.9 g/dL (3.5-5.0); Alkaline Phosphatase 34 U/L (39-117); Anion Gap 16 (12-20); Aspartate Amino Transferase 18 U/L (5-37); Bilirubin Direct 0.2 mg/dL (0.0-0.5); Bilirubin Total 0.4 mg/dL (0.0-1.0); Blood Urea Nitrogen 20 mg/dL (9-16); Carbon Dioxide 24 mmol/L (22-29); Chloride 107 mmol/L (96-108); Creatinine Clr Calc Pharmacy 111.9; Estimated Glomerular Filt Rate > 60; Glucose Random 101 mg/dL (60-115); Lipase 24 U/L (8-78); Potassium 3.7 mmol/L (3.3-5.1); Sodium 143 mmol/L (135-145); Total Protein 7.1 g/dL (6.5-8.0)
[2023-06-18 20:15] LABS: Valproate 54.3 mcg/mL (50.0-100.0)
[2023-06-18 20:19] LABS: Troponin-I High Sensitivity 9.9 ng/L (<3.5-35.0)
[2023-06-18] MEDS: Acetaminophen 325 MG TABLET 650 MG PO (21:34)
[2023-06-18] MEDS: Lidocaine 4 % Patch ADH..PATCH 1 PATCH TRANSDERMA (21:34)
[2023-06-18 22:30] VITALS: BP 119/51; PULSE 66; RESP 18; TEMP 36.7; O2SAT 98
== END 2023-06-18 22:45 | disposition home or self-care (01) ==
PROVIDERS: Emergency Provider Emergency Medicine
DX: S20.219A Contusion of unspecified front wall of thorax, initial encounter (principal); S20.213A Contusion of bilateral front wall of thorax, initial encounter; R07.89 Other chest pain; U07.1 COVID-19; H66.92 Otitis media, unspecified, left ear; I49.9 Cardiac arrhythmia, unspecified; R51.9 Headache, unspecified; M54.2 Cervicalgia; R07.81 Pleurodynia; W01.10XA Fall on same level from slipping, tripping and stumbling with subsequent striking against unspecified object, initial encounter; Y93.E1 Activity, personal bathing and showering; Y92.002 Bathroom of unspecified non-institutional (private) residence as the place of occurrence of the external cause; Y99.8 Other external cause status; Z11.52 Encounter for screening for COVID-19; Z79.899 Other long term (current) drug therapy
CPT/HCPCS: 36415; 70450; 71250; 72125; 80048; 80076; 80164; 83690; 83735; 84484; 85025; 85610; 87635; 93005; 99284; 99285

== ENCOUNTER → 2023-06-18 19:06 | Outpatient (BNV) | payer OTHER, SELFPAY | PROVIDERS: Emergency Provider Emergency Medicine; Visit Provider Internal Medicine | DX: R94.31 Abnormal electrocardiogram [ECG] [EKG] (principal) | CPT/HCPCS: 93010 ==

== ENCOUNTER 2023-07-15 11:14 | Outpatient (AMB) | payer OTHER, MEDICAID, SELFPAY ==
[2023-07-15 11:19] VITALS: BP 124/70; PULSE 83; TEMP 36.4; O2SAT 98; BMI 35.3
--- NOTE | 2023-07-15 11:19 | AM.OFFWIN_ITS ---
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 He states that he noted it 1st upon wakening in the middle of the night. There was no apparent acute trauma. His staff member reports that patient has trouble with good hygiene measures, and does not wash his hands after using the restroom. There is no report of vision changes, headache or dizziness, nausea or vomiting, or other significant associated symptoms. He does have a history of seeing an assistant inventory manager regularly, however no known eye issues reported. COUNTS INCLUDE 234 BEDS AT THE [facility] Medical History Intellectual disability Intermittent explosive disorder in adult Autism Anxiety Social History Alcohol intake: never Patient Tobacco Use Status: Never used Tobacco Physical Exam Vital Signs: Last Vital Signs Temp 97.6 F 07/15/23 11:19 Pulse 83 07/15/23 11:19 BP 124/70 07/15/23 11:19 Pulse Ox 98 07/15/23 11:19 Oxygen Delivery Method Room Air 07/15/23 11:19 BMI result Body Mass Index 35.3 Eyes Other: Bilateral eyelid edema and erythema, as well as erythema and conjunctival edema throughout the eyeball itself. It is erythematous and injected throughout. There is purulent discharge visible. Surrounding eye structures are normal. Alignment and Position: alignment normal Periorbital: periorbital findings normal Eyes/upper lids images: 2 1. Fluorescein uptake Assessment & Plan Assessment & Plan (1) Conjunctivitis: Code(s): H10.9 - Unspecified conjunctivitis Qualifiers: Conjunctivitis type: acute Acute conjunctivitis type: bacterial L aterality: left Qualified Code(s): H10.32 - Unspecified acute conjunctivitis, left eye Plan: Patient has obvious left acute conjunctivitis, likely bacterial. Either from the itching, or as the initial inciting event, he also has a corneal abrasion apparent on that side with fluorescein uptake in the center of the eye. I advised that he follow-up with his assistant inventory manager within the next few days, and I will write him for erythromycin ophthalmic ointment. He is special needs, and apparently has trouble with good hygiene per his administrative support specialist member with him today. We discussed trying to improve hygiene measures, especially after using the bathroom. We also discussed using warm clean compresses prior to putting in the eye cream, or as needed with obvious discharge. (2) Abrasion of conjunctiva with infection: Code(s): S05.00XA - Injury of conjunctiva and corneal abrasion without foreign body, unspecified eye, initial encounter; H44.009 - Unspecified purulent endophthalmitis, unspecified eye Qualifiers: Encounter type: initial encounter Laterality: left Qualified Code(s): S05.02XA - Injury of conjunctiva and corneal abrasion without foreign body, left eye, initial encounter; H44.002 - Unspecified purulent endophthalmitis, left eye Plan: As above, patient is to follow up with assistant inventory manager, and in the meantime will be using the erythromycin ophthalmic ointment. Orders: Orders 2 AMB Fluorescein eye exam Today H57.12 - Ocular pain, left eye Referrals 2 Ophthalmology Referral H44.009 - Unspecified purulent endophthalmitis, unspecified eye, S05.00XA - Injury of conjunctiva and corneal abrasion without foreign body, unspecified eye, initial encounter Medications: New 2 erythromycin 0.5 inches ophthalmic (eye) QID 3.5 grams 0RF Coding Level of Care Code Est Pt Level 4 (03472) Diagnoses Acute bacterial conjunctivitis of left eye H10.32 Conjunctivitis type: acute Acute conjunctivitis type: bacterial Laterality: left Abrasion of left conjunctiva with infection, initial encounter S05.02XA; H44.002 Encounter type: initial encounter Laterality: left
== END 2023-07-15 14:40 | disposition home or self-care (01) ==
PROVIDERS: Visit Provider Physician Assistant Medical
DX: H10.32 Unspecified acute conjunctivitis, left eye (principal); S05.02XA Injury of conjunctiva and corneal abrasion without foreign body, left eye, initial encounter; H44.002 Unspecified purulent endophthalmitis, left eye
CPT/HCPCS: 99051; 99214

== ENCOUNTER 2023-11-30 10:03 | Outpatient (AMB) | payer OTHER, MEDICAID, SELFPAY ==
[2023-11-30 10:04] VITALS: BP 124/70; PULSE 68; BMI 33.1
--- NOTE | 2023-11-30 10:04 | A.OFFVIS_ITS ---
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 rhamnosus GG-inulin 10 billion cell -200 mg ([facility] [employer] [facility]) caps PO lidocaine 5% 1 patch topical DAILY loratadine (Allergy Relief (loratadine)) 10 mg PO DAILY lorazepam (Ativan) 0.5 mg PO DAILY PRN prxnycrf-cyy-srstqdc sulfate 4.5 mg iron (One Daily Multivitamins with Minerals) tabs PO DAILY nystatin (Nyamyc) 1 appl topical DAILY paroxetine HCl (Paxil) 40 mg PO DAILY polyethylene glycol 3350 (Miralax) 17 grams PO DAILY psyllium husk 0.52 grams PO TID HPI HPI 6 mth f/up: Details: Samuel is a 43-year-old male with past medical history obesity, hyperlipidemia, atrial flutter, moderate aortic regurgitation, SVT who presents for follow-up. Today he reports he has been doing well since his last visit in May. He has not had any recurrent fast heartbeats like his prior SVT. He denies any fluttering in his chest. He denies chest discomfort, shortness of breath, palpitations, lightheadedness, presyncope, syncope, PND, orthopnea or edema. He has been going to a new day program and has been walking more. He takes his meds as directed. 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 [facility] Medical History Intellectual disability Intermittent explosive disorder in adult Autism Anxiety Social History Alcohol intake: never Patient Tobacco Use Status: Never used Tobacco Review of Systems Const All systems reviewed & are unremarkable except as noted in HPI and below ENT Denies dizziness Card Denies chest pain, Denies chest pain at rest, Denies chest pain with activity, Denies rapid heart rate, Denies pedal edema, Denies edema, Denies leg edema, Denies lightheadedness, Denies palpitations, Denies dyspnea, Denies dyspnea on exertion and Denies orthopnea Resp Denies cough, Denies dyspnea and Denies dyspnea on exertion GI Denies hematochezia and Denies change in stool character Musc Denies abnormal gait, Denies limited range of motion, Denies muscle cramps, Denies muscle weakness, Denies radiating pain into limb and Denies stiffness Neuro Denies abnormal gait and Denies dizziness Endo Denies palpitations Physical Exam Vital Signs: Last Vital Signs Pulse 68 11/30/23 10:04 BP 124/70 11/30/23 10:04 BMI result Body Mass Index 33.1 Const General: cooperative, healthy appearing, comfortable and no acute distress Orientation/consciousness: patient oriented x3 Neck Neck: Yes normal visual inspection and Yes no JVD Chest Chest palpation & inspection: normal inspection of the chest Resp Effort & Inspection: normal respiratory effort Auscultation: clear to auscultation bilaterally, no crackles, no rales, no rhonchi and no wheezes Cardio Jugular venous distension: no JVD Rate: regular rate Rhythm: regular rhythm Heart sounds: S1 normal heart sound present, S2 normal heart sound present, no murmurs and no rubs GI Inspection: Yes normal to inspection Skin General skin exam: no rashes or lesions noted Neuro General: patient oriented x3 Extrem General: Yes normal to inspection, No no pedal edema and No calf tenderness Psych Appearance: grossly normal Mental Status: mental status grossly normal Speech and movement: Normal speech and movement present Assessment & Plan Assessment & Plan (1) Atrial fibrillation: Code(s): I48.91 - Unspecified atrial fibrillation Category: Medical Plan: History of atrial flutter, paroxysmal. [facility] [place] last fall for reported SVT rate 160. It is possible this was atrial flutter, with 1-1 conduction. He was hypotensive and underwent cardioversion with successful conversion back to sinus rhythm. [facility] discharge [place] reviewed. Note does not mention atrial fibrillation however EKG done on him during admission 03/13/2023 shows atrial fibrillation, rate 116. On discharge his diltiazem dose had been increased from 120 mg of do 180 mg daily. He is not on anticoagulation due to low stroke risk, chads Vasc score of 0. Echocardiogram done 04/14/2023 showed EF 60-65%, mild calcification of the aortic valve, mild AR, ascending aorta 4.1 cm. Holter monitor done 04/14/2023 for 3 days showed sinus rhythm with average heart rate 68, heart rate range 50 to 156, rare SVE and VE. He has done well since that time. Today he reports no recurrent heart palpitations. Pulse is very regular on examination. No concern for AFib at this time. Will continue on current diltiazem. Emergency care if needed for sustained rapid heartbeats, palpitations. Cardiology follow-up in 6 months, sooner if needed. (2) Atrial flutter: Code(s): I48.92 - Unspecified atrial flutter Category: Medical Plan: As above (3) SVT (supraventricular tachycardia): Code(s): I47.10 - Supraventricular tachycardia, unspecified Category: Medical Plan: As above. (4) Aortic insufficiency: Code(s): I35.1 - Nonrheumatic aortic (valve) insufficiency Category: Medical Plan: Mild aortic regurgitation (5) Aortic valve calcification: Code(s): I35.9 - Nonrheumatic aortic valve disorder, unspecified Category: Medical Plan: Mild aortic valve calcification (6) Hyperlipidemia: Code(s): E78.5 - Hyperlipidemia, unspecified Category: Medical Plan: [place] LDL goal less than 100. He is on atorvastatin. Orders placed for CMP and fasting lipids last visit. Have not been done as of yet. Patient/ he has worker informed. Plan Time spent on chart review, documentation, interview, assessment Coding Level of Care Code Est Pt Level 3 (37941) Diagnoses Atrial fibrillation I48.91 Atrial flutter I48.92 SVT (supraventricular tachycardia) I47.10 Aortic insufficiency I35.1 Aortic valve calcification I35.9 Hyperlipidemia E78.5 Time Spent (min) 24
== END 2023-11-30 10:24 | disposition home or self-care (01) ==
PROVIDERS: PCP Internal Medicine; Visit Provider Nurse Practitioner Family
DX: I48.91 Unspecified atrial fibrillation (principal); I48.92 Unspecified atrial flutter; I47.10 Supraventricular tachycardia, unspecified; I35.1 Nonrheumatic aortic (valve) insufficiency; I35.9 Nonrheumatic aortic valve disorder, unspecified; E78.5 Hyperlipidemia, unspecified
CPT/HCPCS: 99213

== ENCOUNTER → 2023-11-30 10:03 | Outpatient (BNVA) | payer OTHER, MEDICAID, SELFPAY | PROVIDERS: PCP Internal Medicine; Visit Provider Nurse Practitioner Family ==

== ENCOUNTER 2024-04-02 11:55 | Outpatient (REF) | payer OTHER, MEDICAID, SELFPAY ==
[2024-04-02 13:12] LABS: Valproate 64.3 mcg/mL (50.0-100.0)
[2024-04-02 13:15] LABS: Alanine Aminotransferase 22 U/L (0-40); Albumin Level 4.1 g/dL (3.5-5.0); Alkaline Phosphatase 38 U/L (39-117); Aspartate Amino Transferase 22 U/L (5-37); Bilirubin Direct 0.1 mg/dL (0.0-0.5); Bilirubin Total 0.4 mg/dL (0.0-1.0); Total Protein 7.4 g/dL (6.5-8.0)
== END 2024-04-02 11:56 | disposition home or self-care (01) ==
LOC: HO.LAB 11:55
PROVIDERS: PCP Internal Medicine; Visit Provider General Practice
DX: F63.81 Intermittent explosive disorder (principal); Z79.899 Other long term (current) drug therapy
CPT/HCPCS: 36415; 80076; 80164

== ENCOUNTER 2024-07-24 10:32 | Outpatient (AMB) | payer MEDICAID, SELFPAY ==
[2024-07-24 10:33] VITALS: BP 128/80; PULSE 80
--- NOTE | 2024-07-24 10:33 | A.OFFPC_ITS ---
Vital Signs 07/24/24 10:33 BP 128/80 Blood Pressure Location Lt brachial Position Sitting Pulse 80 Pulse Source Pulse Oximeter Oxygen Delivery Method Room Air Intake Visit Reasons: establish care Allergies Penicillins [PENICILLINS] Allergy (Unknown, Verified 11/30/23 10:06) [facility] Medical History (Updated 07/24/24 @ 10:56 by Gino Castro MD) Hospital discharge follow-up Intellectual disability Intermittent explosive disorder in adult Autism Anxiety Social History Alcohol intake: never Patient Tobacco Use Status: Never used Tobacco Physical exam (Primary Care) Vital Signs: Last Vital Signs Pulse 80 07/24/24 10:33 BP 128/80 07/24/24 10:33 Oxygen Delivery Method Room Air 07/24/24 10:33 Tobacco/Smoking Status: Tobacco use Status Patient Tobacco Use Status Never used Tobacco 07/24/24 10:36 Const Other: Noted frontal bossing of the forehead with gum hypertrophy in the mouth patient does not look eye to eye and so can not determine extraocular muscles but looking like the left eye does not follow having strabismus. General: alert; No acute distress Eyes Conjunctivae: conjunctivae normal Resp Auscultation: clear to auscultation bilaterally Cardio Rate: regular rate Rhythm: regular rhythm GI Inspection: Yes normal to inspection Extrem General: Yes normal to inspection and No edema Coding Level of Care Code New Pt Level 4 (50324) Diagnoses Atrial fibrillation I48.91 Hyperlipidemia E78.5 Ascending aorta dilatation I77.810 Intermittent explosive disorder in adult F63.81 Assessment & Plan Assessment & Plan (1) Atrial fibrillation: Code(s): I48.91 - Unspecified atrial fibrillation Category: Medical Plan: Chads Vasc score low no anticoagulation on diltiazem 180 mg once a day (2) Hyperlipidemia: Code(s): E78.5 - Hyperlipidemia, unspecified Category: Medical Plan: Avoid fried foods, chicken skin, eggs, butter margarine, pastries and meat. Be it pork or beef they have a lot of cholesterol LDL goal of less than 100 will need blood work patient is on fenofibrate (3) Ascending aorta dilatation: Comment: March 2023 4.1 cm Code(s): I77.810 - Thoracic aortic ectasia Category: Medical Plan: Continue to monitor March 2023 last echocardiogram control the blood pressure (4) Intermittent explosive disorder in adult: Code(s): F63.81 - Intermittent explosive disorder Category: Medical Plan: Continue to follow-up with psychiatry on Depakote lorazepam paroxetine Plan History of Present Illness The patient is a 43-year-old male presenting with cardiovascular concerns and ongoing mental health management. He has a documented history of atrial fibrillation and supraventricular tachycardia (SVT), requiring previous cardioversion to restore sinus rhythm. He exhibits an ascending aortic dilation of 4.1 cm and moderate aortic regurgitation, with blood pressure control being emphasized for disease management. His cardiac function is at 65% based on a March 2023 echocardiogram. Blood work in May 2023 revealed anemia and leukopenia. Despite a history of hypercholesterolemia, his LDL and triglyceride levels were previously noted at 115 and 138 respectively. The patient is under the care of psychiatry and is prescribed psychiatric medications (Depakote, lorazepam, paroxetine). Health Maintenance - Emphasis on controlling cardiovascular risk factors, including medication adherence to diltiazem and fenofibrate. - Cholesterol management with a goal LDL of less than 100 mg/dL. - Discussed the importance of blood pressure management to maintain cardiac health. - Encouraged dietary modifications including increased plant proteins and reduced intake of processed foods. - Discussed the need for a heart-healthy lifestyle including regular physical activity and weight management. - Possible future consideration for pneumonia vaccination. Social History - Obesity with challenges related to poor dietary habits, including limited consumption of vegetables and preference for processed foods like chocolate. - Limited physical activity or exercise routine is contributing to c ardiovascular risk. - History indicates significant time being sedentary ( staying in the house a lot ). - The patient reports a lack of incorporation of relaxing activities into routine, which may impact blood pressure and stress levels. Review of Systems - Cardiovascular: Reports of aortic regurgitation. - Hematologic: Reports anemia and leukopenia. - Psych: Denies intermittent explosive disorder, mentions being on psychiatric medications; no sedation issues reported. Physical Exam - Cardiovascular- Blood pressure control was noted as adequate. - Lungs- Clear to auscultation with no abnormal breath sounds. - Neurologic- No evidence of tremor or coordination issues. - Extremities- No edema or swelling noted. Results - Labs: Anemia and leukopenia noted in recent blood work (May 2023). - Echocardiogram: 65% function with ascending aortic dilation of 4.1 cm (March 2023). - Viewing of prior cardiovascular assessments: Moderate aortic regurgitation was noted. Plan We will maintain current pharmacologic interventions and non-pharmacologic approaches for managing cardiovascular health concerns. Blood pressure control remains a carlin focus to prevent cardiac strain. The patient should continue medications as prescribed, with no current need for anticoagulation. Regular cardiac evaluations will monitor progression of aortic dilation and regurgitation. Further investigational lab work will monitor hematologic parameters currently showing anemia and leukopenia. Lifestyle modifications aiming for a healthier diet and increased physical activity are highly recommended. We have instructed follow-up consultations with cardiology and psychiatric services for comprehensive care management. Patient was informed and verbally consented to the use of an ambient scribe for clinic note documentation during this visit. Discussion Notes I discussed the ongoing management of the patient's cardiac conditions, emphasizing the stability achieved with current medications and the necessity of lifestyle adjustments to support cardiovascular health. We agreed on monitoring cardiac markers and the importance of the pending echocardiogram and laboratory evaluations. I outlined the requirement for routine psychiatric follow-up for medication assessment and mental health support. We discussed potential dietary changes to address anemia and cholesterol targets. The risks and benefits of current treatment strategies, such as the use of diltiazem, and ongoing monitoring without anticoagulation were reviewed, given his low thromboembolic risk via [id number] scoring. Patient Instructions - Continue taking diltiazem and fenofibrate as prescribed. - Maintain blood pressure within target ranges as advised. - Aim for a heart-healthy diet, incorporating more plant-based proteins and limiting processed foods. - Engage in regular physical activity to aid weight management. - Monitor for symptoms that could suggest exacerbation of cardiovascular conditions. - Attend scheduled follow-ups with cardiology and psychiatry for the management of cardiac and mental health issues. - Report any new or worsening symptoms such as chest pain, palpitations, or unusual fatigue promptly. Orders: Orders Complete Blood Count Auto Diff Today I48.91 - Unspecified atrial fibrillation Comprehensive Met. Panel Today I48.91 - Unspecified atrial fibrillation Lipid Panel Today E78.00 - Pure hypercholesterolemia, unspecified, I48.91 - Unspecified atrial fibrillation Thyroid Stimulating Hormone Today I48.91 - Unspecified atrial fibrillation Vitamin B12 and Folate Today I48.91 - Unspecified atrial fibrillation UA w Microscopic Today I48.91 - Unspecified atrial fibrillation Valproate Today F63.81 - Intermittent explosive disorder Hemoglobin A1c Today F63.81 - Intermittent explosive disorder Free T4 (Free Thyroxine) Today I48.91 - Unspecified atrial fibrillation Magnesium Today I48.91 - Unspecified atrial fibrillation CA echo transthoracic complete Today I77.810 - Thoracic aortic ectasia
== END 2024-07-24 11:18 | disposition home or self-care (01) ==
PROVIDERS: PCP Internal Medicine; Visit Provider Internal Medicine
DX: I48.91 Unspecified atrial fibrillation (principal); E78.5 Hyperlipidemia, unspecified; I77.810 Thoracic aortic ectasia; F63.81 Intermittent explosive disorder

== ENCOUNTER → 2024-07-24 10:32 | Outpatient (BNVA) | payer MEDICAID, SELFPAY | PROVIDERS: PCP Internal Medicine; Visit Provider Internal Medicine | DX: I48.91 Unspecified atrial fibrillation (principal); E78.5 Hyperlipidemia, unspecified; I77.810 Thoracic aortic ectasia; F63.81 Intermittent explosive disorder | CPT/HCPCS: 99202 ==

== ENCOUNTER 2024-08-09 10:26 | Outpatient (REF) | payer OTHER, SELFPAY ==
[2024-08-09 10:50] LABS: MANUAL DIFF FLAG NO
[2024-08-09 11:32] LABS: Basophils Absolute Auto 0.1 X10*3/uL (0.0-0.2); Eosinophils Absolute Auto 0.1 X10*3/uL (0.0-0.4); Eosinophils Percent Auto 2.5 % (0-4); Hematocrit 38.4 % (42.0-52.0); Hemoglobin 12.9 g/dl (14.0-18.0); Imm Gran Abs Auto 0.06 X10*3/uL (0.00-0.03); Imm Gran Pct Auto 1.1 % (0.0-0.4); Lymphocytes Absolute Auto 2.3 X10*3/uL (1.2-4.9); Lymphocytes Percent Auto 44.1 % (20-40); Mean Corpuscular HGB Conc 33.6 g/dl (31.0-36.0); Mean Corpuscular Hemoglobin 29.5 pg (27.0-33.0); Mean Corpuscular Volume 87.7 fL (80.0-98.0); Monocytes Absolute Auto 0.4 X10*3/uL (0.1-1.2); Neutrophils Absolute Auto 2.3 x10*3/uL (2.0-8.3); Neutrophils Percent Auto 44.3 % (45-73); Platelet Count 229 X10*3/uL (160-400); Red Blood Count 4.38 X10*6/uL (4.60-5.80); Red Cell Distribution Width 13.1 % (11.0-16.0); White Blood Count 5.3 X10*3/uL (4.8-10.8)
[2024-08-09 11:40] LABS: Appearance Urine Cloudy; Color Urine Dark Yellow; Glucose Urine UA Negative (Negative); Leukocyte Esterase Urine Negative (Negative); Nitrite Urine Negative (Negative); PH 7.5 (5.0-9.0); Specific Gravity - Urine 1.025 (1.005-1.025); UMIC TRIGGER UA YES; Urine Blood Negative (Negative); Urine Ketones Trace mg/dL (Negative); Urine Protein 30 (1+) mg/dL (Neg-Trace)
[2024-08-09 11:44] LABS: Bacteria Urine None Seen (None Seen); Hyaline Casts Urine 0-2 /LPF (0-2); RBC Urine 0-2 /HPF (0-2); Squamous Epithelial Cell Urine 0-2 /HPF (0-2); WBC Urine 0-5 /HPF (0-5)
[2024-08-09 11:59] LABS: Estimated Average Glucose 120 mg/dL; Hemoglobin A1C 156.0404 umol/L; Hemoglobin A1c % 5.8 % (<6.0); Total Hemoglobin (HGBA1C) 3913.4605 umol/L
[2024-08-09 12:00] LABS: Valproate 71.4 mcg/mL (50.0-100.0)
[2024-08-09 12:08] LABS: Alanine Aminotransferase 18 U/L (0-40); Albumin Level 3.9 g/dL (3.5-5.0); Anion Gap 14 (12-20); Aspartate Amino Transferase 27 U/L (5-37); Bilirubin Total 0.5 mg/dL (0.0-1.0); Blood Urea Nitrogen 19 mg/dL (9-16); Calcium 8.9 mg/dL (8.4-10.2); Carbon Dioxide 28 mmol/L (22-29); Chloride 103 mmol/L (96-108); Cholesterol 178 mg/dL (<200); Estimated Glomerular Filt Rate > 60; Glucose Random 88 mg/dL (60-115); HDL Cholesterol 39 mg/dL (>40); LDL Cholesterol Calculated 111 mg/dL (<100); Potassium 4.5 mmol/L (3.3-5.1); Sodium 140 mmol/L (135-145); Total Protein 6.9 g/dL (6.5-8.0); Triglycerides 140 mg/dL (<150)
[2024-08-09 12:17] LABS: Free T4 (Free Thyroxine) 1.04 ng/dL (0.71-1.85); Thyroid Stimulating Hormone 4.97 uIU/mL (0.32-4.0)
[2024-08-09 12:33] LABS: Folate 6.2 ng/mL (> or = 4.0); Vitamin B12 668 pg/mL (200-900)
[2024-08-09 19:44] LABS: Alkaline Phosphatase 32 U/L (39-117)
== END 2024-08-09 10:27 | disposition home or self-care (01) ==
LOC: HO.LAB 10:26
PROVIDERS: PCP Internal Medicine; Visit Provider Internal Medicine
DX: I48.91 Unspecified atrial fibrillation (principal); E78.5 Hyperlipidemia, unspecified; I77.810 Thoracic aortic ectasia; F63.81 Intermittent explosive disorder; R73.01 Impaired fasting glucose
CPT/HCPCS: 36415; 80053; 80061; 80164; 81001; 82607; 82746; 83036; 83735; 84439; 84443; 85025; 99212

== ENCOUNTER 2024-08-09 11:37 | Outpatient (AMB) | payer OTHER, MEDICAID, SELFPAY ==
--- NOTE | 2024-08-09 11:47 | MHC.PC.OV ---
Vital Signs 08/09/24 11:49 Height 5 ft 8 in Weight 227 lb 6 oz BMI 34.6 BP 130/70 Blood Pressure Location Lt brachial Position Sitting Pulse 65 Pulse Source Pulse Oximeter Temp 97.5 F Temp Source Temporal Artery Scan Pulse Oximetry (%) 95 Oxygen Delivery Method Room Air Intake Visit Reasons: Paperwork f/u Intake Note: Patient is here to follow up on Paperwork. Household Cook Required: No Consultant: Present Accompanied by: STAFF Allergies Penicillins [PENICILLINS] Allergy (Unknown, Verified 08/09/24 11:48) RASH Tobacco use date assessed: 08/09/24 Dental Screening Dental Screen Date: 08/09/24 Did you have a dental visit in the last 12 months?: Yes Did you have a dental problem in the last 6 months where you did not have access to dental care?: No Was dental information given to patient?: Patient has dentist [facility] Medical History (Updated 08/09/24 @ 12:06 by Gino Castro MD) Aortic valve calcification Atrial flutter Hospital discharge follow-up Intellectual disability Intermittent explosive disorder in adult Autism Anxiety Social History Housing: Other (Group) Alcohol intake: never Patient Tobacco Use Status: Never used Tobacco e-Cigarette/Vaping Use: Never Used Second Hand Smoke Exposure: No service: No Cognitive needs: No Hearing needs: No Vision needs: No Questionnaire PHQ-9 Over the last 2 weeks, how often have you been bothered by any of the following problems? 1. Little interest or pleasure in doing things: not at all 2. Feeling down, depressed, or hopeless: not at all 3. Trouble falling or staying asleep, or sleeping too much: not at all 4. Feeling tired or having little energy: not at all 5. Poor appetite or overeating: not at all 6. Feeling bad about yourself - or that you are a failure or have let yourself or your family down: not at all 7. Trouble concentrating on things, such as reading the newspaper or watching television: not at all 8. Moving or speaking so slowly that other people could have noticed. Or the opposite - being so fidgety or restless that you have been moving around a lot more than usual: not at all 9. Thoughts that you would be better off or of hurting yourself in some way: not at all Total score: 0 Depression Screening Interpretation: Negative Depression Screening Done: Yes Source: Developed by Drs. Bib Cooley, Rashel Cherry and colleagues, with an educational jenaro from [employer]. Thrive Questionnaire Date Thrive assessed: 08/09/24 I am a: Patient What is your living situation today?: I have a steady place to live Within the past 12 months, did the food you bought not last and you didn't have the money to get more?: Never true Within the past 12 months, did you worry whether your food would run out before you got money to buy more?: Never true Do you have trouble paying for medicines?: No Do you have trouble getting transportation to medical appointments?: No Do you have trouble paying your heating and electricity bill?: No Do you have trouble taking care of your child, family member or friend?: No Do you have trouble with day-to-day activities such as bathing, preparing meals, shopping, managing finances, etc.?: No Are you currently unemployed and looking for a job?: No Are you interested in more education?: No Please select the resources that you would like help with: None Currently or been in a relationship where the following occur: No concerns reported THRIVE Score: 0 AUDIT C Alcohol Use Questionnaire (AUDIT-C) 1. How often do you have a drink containing alcohol?: Never Total Score: 0 JANAE-7 AMB Questionnaire JANAE-7 Date JANAE - 7 assessed: 08/09/24 Feeling nervous, anxious, or on edge: 0 = Not at all Not being able to stop or control worryin = Not at all Worrying too much about different things: 0 = Not at all Trouble relaxin = Not at all Being so restless that it is hard to sit still: 0 = Not at all Becoming easily annoyed or irritable: 0 = Not at all Feeling afraid as if something awful might happen: 0 = Not at all Total JANAE-7 score (0-4 normal; 5-9 mild; 10-14 moderate; 15-21 severe): 0 Source: Developed by Marla Argueta Kurt Kroenke and colleagues, with an educational jenaro from [employer]. Physical exam (Primary Care) Vital Signs: Last Vital Signs Temp 97.5 F 08/09/24 11:49 Pulse 65 08/09/24 11:49 BP 130/70 08/09/24 11:49 Pulse Ox 95 08/09/24 11:49 Oxygen Delivery Method Room Air 08/09/24 11:49 BMI result Body Mass Index 34.6 Tobacco/Smoking Status: Tobacco use Status Tobacco use date assessed 08/09/24 08/09/24 11:56 Patient Tobacco Use Status Never used Tobacco 08/09/24 11:56 e-Cigarette/Vaping Use Never Used 08/09/24 11:56 PHQ-9: PHQ-9 Score PHQ-9: Total score 0 08/09/24 11:56 Depression Screening Interpretation: Negative Thrive Assessment: Date of Thrive Assessment Date Thrive assessed 08/09/24 08/09/24 11:56 Currently or been in a relationship where the following occur: No concerns reported Const General: alert; No acute distress Eyes Conjunctivae: conjunctivae normal Resp Auscultation: clear to auscultation bilaterally Cardio Rate: regular rate Rhythm: regular rhythm GI Inspection: Yes normal to inspection Extrem General: Yes normal to inspection and No edema Coding Level of Care Code Est Pt Level 4 (35689) Diagnoses Atrial fibrillation I48.91 Hyperlipidemia E78.5 Ascending aorta dilatation I77.810 Intermittent explosive disorder in adult F63.81 Impaired fasting blood sugar R73.01 Assessment & Plan Assessment & Plan (1) Atrial fibrillation: Comment: Chads Vasc score 0 no anticoagulation Code(s): I48.91 - Unspecified atrial fibrillation Category: Medical Plan: Continuing to monitor no anticoagulation needed (2) Hyperlipidemia: Code(s): E78.5 - Hyperlipidemia, unspecified Category: Medical Plan: Blood work is pending. Avoid fried foods, chicken skin, eggs, butter margarine, pastries and meat. Be it pork or beef they have a lot of cholesterol. Patient on atorvastatin and fenofibrate (3) Ascending aorta dilatation: Comment: March 2023 4.1 cm Code(s): I77.810 - Thoracic aortic ectasia Category: Medical Plan: New echocardiogram requested (4) Intermittent explosive disorder in adult: Code(s): F63.81 - Intermittent explosive disorder Category: Medical Plan: Continue to follow-up with psychiatry (5) Impaired fasting blood sugar: Code(s): R73.01 - Impaired fasting glucose Category: Medical Plan History of Present Illness The patient is a 43-year-old male presenting for follow-up of chronic conditions, including atrial fibrillation, hypercholesterolemia, ascending aortic dilatation, and intermittent explosive disorder. Review of recent laboratory findings revealed mild chronic anemia with a hemoglobin level of 12.9 g/dL and a hematocrit of 38.4%. His hemoglobin A1c is 5.8%, indicating prediabetes; he was advised on dietary management focusing on reducing carbohydrates and sweets. The patient is on atorvastatin for hypercholesterolemia management, which shows effectiveness as his bad cholesterol is measured at 111 mg/dL. The patient came in with concerns about reportedly having seizures, which he denies, suggesting possible clerical misdocumentation. An echocardiogram was requested for ongoing monitoring of the ascending aortic dilatation. Health Maintenance - Monitoring and management of atrial fibrillation status - Dietary counseling for reduced carbohydrate and sugar intake due to prediabetes indication - Ongoing management of cholesterol levels with atorvastatin - Regular follow-up for management of intermittent explosive disorder Social History - No travel outside of the country reported - Discussed dietary habits regarding carbohydrate and sugar intake Review of Systems - Cardiovascular: Denies seizures; Reports atrial fibrillation - Endocrine: Reports mildly elevated hemoglobin A1c indicating prediabetes - Hematologic/Lymphatic: Reports chronic mild anemia - Psychiatric/Behavioral: Reports intermittent explosive disorder Physical Exam - Cardiovascular- Heart rate is regular Results - Labs: Mild chronic anemia (hemoglobin 12.9 g/dL, hematocrit 38.4%), hemoglobin A1c 5.8%, LDL cholesterol 111 mg/dL - Other labs: Normal platelet, normal white blood cell count, normal kidney and liver function - Diagnostic Tests: Echocardiogram requested for ascending aortic dilatation monitoring Plan 1. Hypercholesterolemia is being managed effectively with atorvastatin, and this treatment will continue. Prediabetes management includes dietary counseling to reduce carbohydrate and sugar intake. An echocardiogram has been ordered due to ascending aortic dilatation. The patient has been instructed to maintain follow-up with psychiatry for intermittent explosive disorder. Regular blood work will be repeated to monitor hemoglobin levels and prediabetic status.: Patient was informed and verbally consented to the use of an ambient scribe for clinic note documentation during this visit. Discussion Notes During the visit, I reviewed the management of the patient?s atrial fibrillation, which requires ongoing monitoring with a CHASVASC score of 0, indicating no current need for anticoagulation. We discussed the effectiveness of atorvastatin in managing cholesteroo levels, emphasizing the importance of diet modification to address a slightly elevated hemoglobin A1c, highlighting risks of progression to diabetes without changes in carbohydrate and sugar intake. I explained the need for an echo to check on the ascending aortic dilatation. I reassured him about the absence of seizure activity, indicating a possible clerical error in previous records. Future follow-up includes continued monitoring of chronic anemia and prediabetic status and maintaining care for his intermittent explosive disorder with psychiatry. Patient Instructions - Continue current atrial fibrillation management; no anticoagulation needed - Take atorvastatin as prescribed - Limit carbohydrates and sugars in your diet - Await echocardiogram appointment for heart monitoring - Follow up with psychiatry regarding intermittent explosive disorder - Schedule follow-up to monitor hemoglobin levels and prediabetes
[2024-08-09 11:49] VITALS: BP 130/70; PULSE 65; TEMP 36.4; O2SAT 95; BMI 34.6
== END 2024-08-09 12:23 | disposition home or self-care (01) ==
LOC: HO.HMCH 11:37
PROVIDERS: PCP Internal Medicine; Visit Provider Internal Medicine
DX: I48.91 Unspecified atrial fibrillation (principal); E78.5 Hyperlipidemia, unspecified; I77.810 Thoracic aortic ectasia; F63.81 Intermittent explosive disorder; R73.01 Impaired fasting glucose

== ENCOUNTER → 2024-08-21 12:46 | Outpatient (REF) | payer OTHER, SELFPAY ==
--- NOTE | 2024-08-21 12:49 | CA_ITS ---
Transthoracic Echocardiogram Patient (Last, First, Middle): Samuel Patrick, Gender: Male Date of : 1980 Age: 43 Procedure Date: 08/21/2024 Procedure Type: Transthoracic Echocardiogram Location: OP Height: 172.72 cm Weight: 102.97 kg BSA: 2.16 m2 Heart Rate: bpm BP: 130 / 70 mmHg Machine Stamper: TO Referring MD: Gino Castro MD Symptoms: I77.810 - Thoracic aortic ectasia Study Quality: Fair Conclusions: - 1. Technically borderline study 2. Normal LV ejection fraction 60 65% 3. Calcific changes on aortic valve, possibly bicuspid aortic valve with [id number] aortic regurgitation without significant aortic stenosis 4. Mildly dilated ascending aorta although measured at 3.8 cm could be underestimated on this study Findings Left Ventricle Normal left ventricular size, thickness, and systolic function. The visually estimated ejection fraction is between 60-65%. Spectral Doppler is indicative of a normal filling pattern. E/E prime ratio is between 8 and 15 consistent with indeterminate filling pressures. There is mild inferior asymmetric hypertrophy. Right Ventricle Normal right ventricular cavity size and systolic function. Atria The left atrium is normal in size. Interatrial shunt cannot be excluded. The right atrium was not well visualized. Aortic Valve There is moderate calcification of the aortic valve. There is no aortic valve stenosis. There is mild to moderate aortic valve regurgitation. bicuspid aortic valve can not be ruled out. increased gradient across the aortic valve could be related to aortic regurgitation Mitral Valve Likely normal mitral valve structure and function. There is no mitral valve regurgitation. There is no mitral valve stenosis. Pulmonic Valve The pulmonic valve was not well visualized. Tricuspid Valve The tricuspid valve was not well visualized. Tricuspid regurgitation envelope is inadequate for calculation of right ventricular systolic pressure. Normal right atrial pressure. Great Vessels The aorta was not well visualized. The pulmonary artery was not well visualized. Venous The inferior vena cava is normal in size. Pericardium/Pleural The pericardium was not well visualized. Recommendations, Care & Conclusions Consider a WAQAR if clinically appropriate. Measurements 2D Linear Measurements IVSd: 1.25 0.6-0.9/0.6-1.0 cm LVIDd: 5.91 3.9-5.3/4.2-5.9 cm LVIDd Index: 2.74 2.4-3.2/2.2-3.1 cm/m2 LVIDs: 4.37 2.0-3.6 cm LVPWd: 0.75 0.7-1.1 cm LA Diam: 3.60 2.7-3.8/3.0-4.0 cm LAIDs Index: 1.67 1.5-2.3 cm/m2 LV Mass: 299.83 67-162/88-224 g LV Mass Index: 138.81 43-95/49-115 g/m2 LVOT Diam: 2.40 3.0+(-)1.3 cm 2D Systolic Function EF 4C: 66.20 >55% EF 2C: 63.30 >55% EF BiP: 64.90 >55% Mitral Valve MV Pk E: 1.08 MV Decel Time: 195.00 E'Lateral: 7.18 E'Medial: 7.94 E/E' Med: 13.60 E/E' Lat: 15.00 PHT: 57.00 MVA PHT: 3.86 Decel Mineral: 5.53 Aortic Valve AoV Pk Miguel Angel: 2.17 AoV Mn Miguel Angel: 1.48 AoV VTI: 0.43 AoV Pk Grad: 19.00 Aov Mn Grad: 10.00 PORTIA Cont.VTI: 3.76 AI Pk Miguel Angel: 4.38 AI VTI: 2.50 AI Mineral: 3.37 LVOT LVOT Pk Miguel Angel: 1.61 LVOT Mn Miguel Angel: 1.13 LVOT VTI: 0.36 LVOT Pk Grad: 10.00 LVOT Mn Grad: 6.00 LVOT Diam: 2.40 LVOT Area: 4.52 Diastolic Function MV Pk E: 1.08 E'Medial: 7.94 E/E' Med: 13.60 E' Laterial: 7.18 E/E' Lat: 15.00 Right Ventricle TAPSE (mm): 19.10 TVS' Miguel Angel: 10.70 Tricuspid Valve RA Press: 8.00 Great Vessels Aorta Sinus of Valsalva: 3.29 2.0-3.5 cm Ao Asc: 3.80 2.1-3.4 cm Updated in Other Vendor System with Status of Final Artis Preez MD electronically signed on 08/21/2024 3:58:41 PM with status of Final
== END ==
LOC: HO.CARD 12:46
PROVIDERS: Visit Provider Internal Medicine
DX: I77.810 Thoracic aortic ectasia (principal)
CPT/HCPCS: 93306

== ENCOUNTER → 2024-08-21 12:49 | Outpatient (BNV) | payer OTHER, SELFPAY | PROVIDERS: Visit Provider Internal Medicine Cardiovascular Disease | DX: I35.2 Nonrheumatic aortic (valve) stenosis with insufficiency (principal) | CPT/HCPCS: 93306 ==

== ENCOUNTER 2024-10-21 14:38 | Outpatient (AMB) | payer OTHER, SELFPAY ==
[2024-10-21 14:59] VITALS: BP 108/62; PULSE 61; BMI 34.5
--- NOTE | 2024-10-21 14:59 | MHC.OFFVIS ---
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 rhamnosus GG-inulin 10 billion cell -200 mg ([facility]) 1 cap PO .QD lidocaine 5% 1 patch topical DAILY loratadine (Allergy Relief (loratadine)) 10 mg PO DAILY lorazepam (Ativan) 0.5 mg PO DAILY PRN lpguyksm-ymj-ooccisd sulfate 4.5 mg iron (One Daily Multivitamins with Minerals) 1 tab PO DAILY nystatin (Nyamyc) 1 appl topical DAILY paroxetine HCl (Paxil) 40 mg PO DAILY polyethylene glycol 3350 (Miralax) 17 grams PO DAILY psyllium husk 0.52 grams PO TID 90 days HPI HPI r/s 6 mth f/up (KM): Details: Samuel is a 44-year-old male with past medical history obesity, hyperlipidemia, atrial flutter, moderate aortic regurgitation, SVT who presents for follow-up. His last prior visit was 11/30/23. Today he reports he has been feeling well since his last visit. He denies any concerning heart palpitations or rapid heartbeats like his prior SVT. He denies any fluttering in his chest. He denies chest discomfort, shortness of breath, palpitations, lightheadedness, presyncope, syncope, PND, orthopnea or edema. He has been going to a day program and walks frequently. He takes his meds as directed. platform worker present. [facility] Medical History Aortic valve calcification Atrial flutter Hospital discharge follow-up Intellectual disability Intermittent explosive disorder in adult Autism Anxiety Social History Housing: Other (Group) Alcohol intake: never Patient Tobacco Use Status: Never used Tobacco e-Cigarette/Vaping Use: Never Used Second Hand Smoke Exposure: No service: No Cognitive needs: No Hearing needs: No Vision needs: No Review of Systems Const All systems reviewed & are unremarkable except as noted in HPI and below ENT Denies dizziness Card Denies chest pain, Denies chest pain at rest, Denies chest pain with activity, Denies rapid heart rate, Denies pedal edema, Denies edema, Denies leg edema, Denies lightheadedness, Denies palpitations, Denies dyspnea, Denies dyspnea on exertion and Denies orthopnea Resp Denies cough, Denies dyspnea and Denies dyspnea on exertion GI Denies hematochezia and Denies change in stool character Musc Denies abnormal gait, Denies limited range of motion, Denies muscle cramps, Denies muscle weakness, Denies numbness, Denies radiating pain into limb, Denies stiffness and Denies tingling Neuro Denies abnormal gait, Denies dizziness, Denies numbness and Denies tingling Endo Denies palpitations Physical Exam Vital Signs: Last Vital Signs Pulse 61 10/21/24 14:59 BP 108/62 10/21/24 14:59 BMI result Body Mass Index 34.5 Const General: cooperative, healthy appearing, comfortable and no acute distress Orientation/consciousness: patient oriented x3 Neck Neck: Yes normal visual inspection and Yes no JVD Resp Effort & Inspection: normal respiratory effort Auscultation: clear to auscultation bilaterally, no rales, no rhonchi and no wheezes Cardio Rate: regular rate Rhythm: regular rhythm Heart sounds: S1 normal heart sound present, S2 normal heart sound present, no gallops, no murmurs and no rubs Neuro General: patient oriented x3 Extrem General: Yes normal to inspection, No no pedal edema and No calf tenderness Psych Appearance: grossly normal Mental Status: mental status grossly normal Speech and movement: Normal speech and movement present Office Procedures EKG Details: Today, read by me, Sinus rhythm with T wave abnormalities leads I, avl, V2, rate 61, Qtc 428ms [id number], Complete Assessment & Plan Assessment & Plan (1) Atrial fibrillation: Comment: Chads Vasc score 0 no anticoagulation Code(s): I48.91 - Unspecified atrial fibrillation Category: Medical Plan: History of atrial flutter, paroxysmal. [facility] [place] for reported SVT rate 160. It is possible this was atrial flutter, with 1-1 conduction. He was hypotensive and underwent cardioversion with successful conversion back to sinus rhythm. Note does not mention atrial fibrillation however EKG done on him during admission 03/13/2023 shows atrial fibrillation, rate 116. Since then he has been on diltiazem CD 180 mg daily. He is not on anticoagulation due to low stroke risk, chads Vasc score of 0. Last Holter monitor done 04/14/2023 for 3 days showed sinus rhythm with average heart rate 68, heart rate range 50 to 156, rare SVE and VE. Last Echocardiogram 08/21/2024 shows EF 60-65%, calcific changes of the aortic valve, [id number] AR, ascending aorta 3.8 cm. EKG done today showing sinus rhythm with T-wave inversion aVL and V2. Continue diltiazem. Emergency care if needed for sustained rapid heartbeats, palpitations. Cardiology follow-up in 1 year, sooner if needed. (2) Atrial flutter: Code(s): I48.92 - Unspecified atrial flutter Category: Medical Plan: As above (3) SVT (supraventricular tachycardia): Code(s): I47.10 - Supraventricular tachycardia, unspecified Category: Medical Plan: As above. (4) Aortic insufficiency: Code(s): I35.1 - Nonrheumatic aortic (valve) insufficiency Category: Medical Plan: Mild to moderate aortic regurgitation (5) Aortic valve calcification: Code(s): I35.9 - Nonrheumatic aortic valve disorder, unspecified Category: Medical Plan: Calcific changes of the aortic valve, no stenosis (6) Hyperlipidemia: Code(s): E78.5 - Hyperlipidemia, unspecified Category: Medical Plan: [place] LDL goal less than 100. He is on atorvastatin. Labs 08/09/2024 had shown LDL 111. No med change at this time if it continues to be elevated atorvastatin dose can be increased. (7) Abnormal EKG: Code(s): R94.31 - Abnormal electrocardiogram [ECG] [EKG] Category: Medical Plan: EKG done today showing T-wave inversion V2, aVL. This appears different than prior EKGs. In the past he has had nonspecific T-wave abnormalities. Recent echo is normal. No anginal symptoms however the accuracy of all his answers is unclear. He has no prior cardiac stress test in system. For completeness will check an exercise nuclear stress test for evaluation of ischemia. He says he will be able to exercise on a treadmill. Plan I discussed the EKG findings with the patient, explaining the significance of the T wave inversion and the need for a nuclear stress test to rule out any cardiac issues. The procedure involves treadmill exercise and a nuclear scan, which will help ensure the heart is functioning properly. I reassured the patient that the test is precautionary, given the absence of symptoms, and emphasized the importance of continuing his current medication and follow-up routine. Orders: Orders CA stress test 10/21/24 I48.91 - Unspecified atrial fibrillation, R94.31 - Abnormal electrocardiogram [ECG] [EKG] NM cardiolite stress test 10/21/24 I48.91 - Unspecified atrial fibrillation, R94.31 - Abnormal electrocardiogram [ECG] [EKG] Patient Instructions: - Schedule and complete the nuclear stress test as advised. - Continue taking diltiazem CD 180 mg daily. - Maintain regular follow-up appointments. Patient was informed and verbally consented to the use of an ambient scribe for clinic note documentation during this visit. Visit time spent on chart review, interview, assessment, orders, documentation. Coding Level of Care Code Est Pt Level 4 (56835) Complex EM visit Add On G2211 Diagnoses Atrial fibrillation I48.91 Atrial flutter I48.92 SVT (supraventricular tachycardia) I47.10 Aortic insufficiency I35.1 Aortic valve calcification I35.9 Hyperlipidemia E78.5 Abnormal EKG R94.31 CPT Codes EKG - CPT: [id number], Complete ([id number]) Time Spent (min) 32
== END 2024-10-21 15:40 | disposition home or self-care (01) ==
LOC: HO.HCS 14:39
PROVIDERS: Visit Provider Nurse Practitioner Family
DX: I48.91 Unspecified atrial fibrillation (principal); I48.92 Unspecified atrial flutter; I47.10 Supraventricular tachycardia, unspecified; I35.1 Nonrheumatic aortic (valve) insufficiency; I35.9 Nonrheumatic aortic valve disorder, unspecified; E78.5 Hyperlipidemia, unspecified; R94.31 Abnormal electrocardiogram [ECG] [EKG]
CPT/HCPCS: 99214; G2211

== ENCOUNTER → 2024-10-21 14:38 | Outpatient (BNVA) | payer OTHER, SELFPAY | PROVIDERS: Visit Provider Nurse Practitioner Family | DX: I35.1 Nonrheumatic aortic (valve) insufficiency (principal); I47.10 Supraventricular tachycardia, unspecified; I35.9 Nonrheumatic aortic valve disorder, unspecified; E78.5 Hyperlipidemia, unspecified; I48.91 Unspecified atrial fibrillation; I48.92 Unspecified atrial flutter; R94.31 Abnormal electrocardiogram [ECG] [EKG] | CPT/HCPCS: 93005; 99212 ==

== ENCOUNTER 2024-12-06 11:02 | Outpatient (AMB) | payer OTHER, SELFPAY ==
--- NOTE | 2024-12-06 11:13 | A.OFFPC_ITS ---
Vital Signs 12/06/24 11:15 Height 5 ft 8 in Weight 233 lb 2 oz BMI 35.4 BP 120/68 Blood Pressure Location Lt brachial Position Sitting Pulse 63 Pulse Source Pulse Oximeter Temp 97.1 F Temp Source Temporal Artery Scan Pulse Oximetry (%) 97 Oxygen Delivery Method Room Air Intake Visit Reasons: pe Intake Note: Patient is here today for a physical. 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: Present Accompanied by: staff Allergies Penicillins (PENICILLINS) Allergy (Unknown, Verified 12/06/24 11:14) RASH Tobacco use date assessed: 12/06/24 Dental Screening Dental Screen Date: 08/09/24 [facility] Medical History (Updated 12/06/24 @ 11:55 by Gino Castro MD) Aortic valve calcification Atrial flutter Hospital discharge follow-up Intellectual disability Intermittent explosive disorder in adult Autism Anxiety Surgical History (Updated 12/06/24 @ 11:18 by SOLIS Cr) No pertinent past surgical history Social History Housing: Other (Group) Alcohol intake: never Patient Tobacco Use Status: Never used Tobacco e-Cigarette/Vaping Use: Never Used Second Hand Smoke Exposure: No service: No Cognitive needs: No Hearing needs: No Vision needs: No Questionnaire Thrive Questionnaire Date Thrive assessed: 08/09/24 JANAE-7 AMB Questionnaire JANAE-7 Date JANAE - 7 assessed: 08/09/24 Source: Developed by Drs. Bib Cooley, Marla Morris, Rashel Light and colleagues, with an educational jenaro from [employer]. Review of Systems Const Denies poor appetite and Denies weakness Eyes Denies no additional complaints ENT Reports Normal hearing present, Denies dizziness, Denies nasal congestion, Denies tinnitus and Denies sore throat Card Denies chest pain, Denies syncope, Denies rapid heart rate and Denies dyspnea Resp Denies cough and Denies dyspnea GI Denies change in stool character, Reports constipation, Denies diarrhea, Denies nausea and Denies vomiting Denies dysuria and Denies urinary frequency Neuro Reports Normal hearing present, Denies confusion, Denies dizziness, Denies syncope and Denies weakness Psych Denies confusion Physical exam (Primary Care) Vital Signs: Last Vital Signs Temp 97.1 F 12/06/24 11:15 Pulse 63 12/06/24 11:15 BP 120/68 12/06/24 11:15 Pulse Ox 97 12/06/24 11:15 Oxygen Delivery Method Room Air 12/06/24 11:15 BMI result Body Mass Index 35.4 Tobacco/Smoking Status: Tobacco use Status Tobacco use date assessed 12/06/24 12/06/24 11:20 Patient Tobacco Use Status Never used Tobacco 12/06/24 11:20 e-Cigarette/Vaping Use Never Used 12/06/24 11:20 Thrive Assessment: Date of Thrive Assessment Date Thrive assessed 08/09/24 12/06/24 11:20 Const General: No confusion Orientation/consciousness: No confusion HENMT Head: Yes normocephalic Ears: external ears normal and TM's normal bilaterally Face and sinus: Yes normal facial exam Mouth: moist mucous membranes Throat: Yes tonsils normal Eyes Conjunctivae: conjunctivae normal Pupils: Equal, round and reactive pupils present and Pupil accommodation reflex normal Direct Ophthalmoscopy: normal light reflex Neck Neck: No lymphadenopathy Thyroid: Thyroid normal Chest Chest palpation & inspection: normal inspection of the chest Resp Effort & Inspection: normal respiratory effort and no audible wheezes Auscultation: clear to auscultation bilaterally, no crackles, no wheezes and lung sounds not diminished Cardio Rate: regular rate Rhythm: regular rhythm Peripheral pulses: radial pulses present and dorsalis pedis present GI Palpation (GI): no masses Auscultation: normal bowel sounds and normoactive bowel sounds Rectal Exam - Male: Yes deferred Skin General skin exam: no rashes or lesions noted Rashes: no rashes Neuro General: No confusion Cranial nerves: Yes Equal, round and reactive pupils present and Yes Normal hearing present Cognition (Neuro): normal cognition Gait exam (Neuro): Normal gait present Motor exam (neuro): 5/5 motor strength present throughout Deep tendon reflexes (DTR's): Right brachioradialis reflex intensity grade: 2+, Left brachioradialis reflex intensity grade: 2+, Right patellar reflex intensity grade: 2+ and Left patellar reflex intensity grade: 2+ Extrem General: No edema Coding Level of Care Code Est Pt Prev Care 40-64y(79604) Diagnoses Annual physical exam Z00.00 Atrial fibrillation I48.91 Ascending aorta dilatation I77.810 Hyperlipidemia E78.5 Impaired fasting blood sugar R73.01 TSH elevation R79.89 Intermittent explosive disorder in adult F63.81 Tinea corporis B35.4 Tinea pedis B35.3 Obesity (BMI 30-39.9) E66.9 Assessment & Plan Assessment & Plan (1) Annual physical exam: Code(s): Z00.00 - Encounter for general adult medical examination without abnormal findings Category: Medical Plan: Patient is advised to eat healthy, keep well hydrated, keep active and have adequate sleep. (2) Atrial fibrillation: Comment: Chads Vasc score 0 no anticoagulation Code(s): I48.91 - Unspecified atrial fibrillation Category: Medical Plan: Continue to follow up with Cardiology seen yearly. No anticoagulation low risk on diltiazem 180 mg once a day (3) Ascending aorta dilatation: Comment: March 2023 4.1 cm, July 2024 3.8 cm Code(s): I77.810 - Thoracic aortic ectasia Category: Medical Plan: Continuing to monitor July 2024 showed 3.8 cm (4) Hyperlipidemia: Code(s): E78.5 - Hyperlipidemia, unspecified Category: Medical Plan: Avoid fried foods, chicken skin, eggs, butter margarine, pastries and meat. Be it pork or beef they have a lot of cholesterol LDL goal of less than 100 discussion about adjusting atorvastatin. (5) Impaired fasting blood sugar: Code(s): R73.01 - Impaired fasting glucose Category: Medical Plan: Decrease the amount of carbohydrate intake, pasta, bread, rice and potatoes are all sugar and that is aside from all the sweet stuff, remember that fruits are good but they are Sweet also. (6) TSH elevation: Code(s): R79.89 - Other specified abnormal findings of blood chemistry Category: Medical Plan: Advised to repeat blood work (7) Intermittent explosive disorder in adult: Code(s): F63.81 - Intermittent explosive disorder Category: Medical Plan: Continue with counseling and therapy (8) Tinea corporis: Code(s): B35.4 - Tinea corporis Category: Medical (9) Tinea pedis: Code(s): B35.3 - Tinea pedis Category: Medical (10) Obesity (BMI 30-39.9): Code(s): E66.9 - Obesity, unspecified Category: Medical Plan History of Present Illness The patient is a 44-year-old male presenting for a follow-up visit and physical examination. The patient has a history of atrial fibrillation, for which he underwent cardioversion. He is not on anticoagulation therapy due to low risk, and he continues to follow up with cardiology annually. The patient has hypercholesterolemia and is currently on atorvastatin. His LDL cholesterol was last recorded at 111 mg/dL, above the target of less than 100 mg/dL, necessitating a potential adjustment in medication. The patient has an ascending aortic dilatation, with the last echocardiogram showing a measurement of 3.8 cm. This condition is monitored annually to prevent progression to a critical size. The patient has impaired glucose tolerance, with a hemoglobin A1c of 5.8%. Dietary modifications have been advised to prevent progression to diabetes. The patient has a history of mild anemia, with a hemoglobin level of 12.9 g/dL, which has been stable over the years. The patient has a mildly elevated TSH, which will be monitored for any changes. The patient has developed a fungal infection in the groin area, likely due to excessive moisture. A topical antifungal cream has been prescribed for treatment. Health Maintenance - Cholesterol management: LDL goal of less than 100 mg/dL - Blood glucose monitoring: Hemoglobin A1c of 5.8% - Annual echocardiogram for ascending aortic dilatation - Monitoring of TSH levels - Vaccinations up to date, including tetanus Social History - Exercise: Patient does not engage in regular physical activity. - Diet: High intake of sweets and snacks, limited consumption of vegetables. - Hygiene: Excessive showering, contributing to skin issues. Review of Systems - Cardiovascular: Denies chest pain, palpitations noted with atrial fibrillation. - Endocrine: Reports mildly elevated TSH, denies symptoms of hyperthyroidism or hypothyroidism. - Dermatological: Reports fungal infection in groin area. Physical Exam General: Cooperative, obese, comfortable, no acute distress Orientation: Patient oriented x3 Limitations: No limitations Head: Normal to inspection Ears: Hearing grossly normal bilaterally, presence of ear wax noted Nose: Normal external nose present Face and sinus: Normal facial exam Eyes: Appearance normal, both eyes and all related structures Neck: Normal visual inspection and Yes full ROM Respiratory: Normal respiratory effort and able to speak in complete sentences. Clear to auscultation bilaterally Cardiovascular: Regular rate and rhythm. Normal S1 and S2 GI: Normal to inspection. Soft to palpation and nontender Skin: Presence of fungal infection in the groin area noted Neuro: Patient oriented x3 Extremities: Normal to inspection, slight swelling noted Results - Labs: Hemoglobin 12.9 g/dL, Hemoglobin A1c 5.8%, LDL 111 mg/dL, TSH mildly elevated - Imaging: Echocardiogram showing ascending aortic dilatation of 3.8 cm Plan The patient will continue to follow up with cardiology for management of atrial fibrillation and monitoring of ascending aortic dilatation. A repeat echocardiogram will be conducted annually to monitor the aortic size. For hypercholesterolemia, the patient's LDL cholesterol levels will be re- evaluated, and atorvastatin dosage may be adjusted to achieve the target LDL of less than 100 mg/dL. The patient is advised to maintain a low-cholesterol diet and engage in regular physical activity. The patient is advised to monitor blood glucose levels regularly due to impaired glucose tolerance. Dietary modifications, including reduced intake of sweets and increased physical activity, are recommended to prevent progression to diabetes. The patient will continue to monitor TSH levels, with follow-up testing to assess any changes. For the fungal infection, a topical antifungal cream has been prescribed for application twice daily for one month. A referral to podiatry has been made to address foot-related issues. Patient was informed and verbally consented to the use of an ambient scribe for clinic note documentation during this visit. Discussion Notes During the visit, I discussed the importance of managing atrial fibrillation and monitoring the ascending aortic dilatation with the patient. We reviewed the need for annual echocardiograms and the potential risks if the aortic size increases. I emphasized the importance of achieving the LDL cholesterol target and discu ssed possible adjustments to atorvastatin if necessary. We also talked about the significance of dietary changes and regular exercise in managing cholesterol levels. For impaired glucose tolerance, I advised the patient on dietary modifications and the need to monitor blood glucose levels to prevent diabetes. We discussed the mildly elevated TSH and the plan to monitor it with follow-up testing. I prescribed a topical antifungal cream for the fungal infection and referred the patient to podiatry for further evaluation of foot issues. Patient Instructions - Continue follow-up with cardiology for atrial fibrillation and aortic monitoring. - Maintain a low-cholesterol diet and engage in regular exercise. - Monitor blood glucose levels regularly and reduce intake of sweets. - Apply antifungal cream twice daily for one month. - Follow up with podiatry for foot evaluation. Orders: Orders Comprehensive Met. Panel Today R73.01 - Impaired fasting glucose Reticulocyte Count Today E78.5 - Hyperlipidemia, unspecified IRON PROFILE Today E78.5 - Hyperlipidemia, unspecified Hemoglobin A1c Today R73.01 - Impaired fasting glucose Lipid Panel Today E78.00 - Pure hypercholesterolemia, unspecified, E78.5 - Hyperlipidemia, unspecified Ferritin Today E78.5 - Hyperlipidemia, unspecified Vitamin B12 and Folate Today E78.5 - Hyperlipidemia, unspecified Referrals Podiatry Referral B35.3 - Tinea pedis Nutrition/Dietitian Referral E66.9 - Obesity, unspecified Medications: New clotrimazole 1% apply to groin and interdigital area 1 appl topical BID 45 grams 0RF 4 weeks B35.4 - Tinea corporis miconazole nitrate 2% (Zeasorb AF) 1 appl topical BID 85 grams 1RF B35.4 - Tinea corporis
[2024-12-06 11:15] VITALS: BP 120/68; PULSE 63; TEMP 36.2; O2SAT 97; BMI 35.4
--- OUTSIDE RECORDS SUMMARY | 2024-12-06 11:15 | XMS_ITS | Clinical Summary ---
Author Organization [facility] Address [address] [place] [address] [place] [id number] Phone Care Team Providers Care Pasteuriser Operator Name Role Phone Unknown, Unknown Primary Care Provider Roman mcconnell Allergies Active Allergy Reactions Criticality Noted Date Comments Penicillins 02/18/2018 Medications alclometasone (ACLOVATE) 0.05 % ointment Apply topically 2 (two) times a day. Active loperamide (IMODIUM) 2 mg capsule Take 2 mg by mouth as needed for diarrhea. Active loratadine (CLARITIN) 10 mg tablet Take 10 mg by mouth daily. Active Active Problems No known active problems Social History Tobacco Use Types Packs/Day Years Used Date Smoking Tobacco: Never Smokeless Tobacco: Never Alcohol Use Standard Drinks/Week Comments No 0 (1 standard drink = 0.6 oz pur e alcohol) Education Answer Date Recorded Are you interested in more education? Not on jeff e 08/19/2022 Are you concerned about learning? Not on file 08/19/2022 No 08/19/2022 No 08/19/2022 Digital Access Answer Date Recorded No 09/17/2022 No 09/17/2022 No 09/17/2022 Reliable internet access at home? Not on file 09/17/2022 Device with a working camera? Not on file Sex and Gender Information Value Date Recorded Sex Assigned at Male 02/26/2018 4:08 PM EST Legal Sex Male 7:02 PM EDT Gender Identity Male 02/26/2018 4:08 PM EST Sexual Orientation Not on file Last Filed Vital Signs Vital Sign Reading Time Taken Comments Blood Pressure 110/51 02/26/2018 5:00 PM EST Pulse 87 02/26/2018 4:29 PM EST Temperature 37 C (98.6 F) 02/26/2018 4:29 PM EST Respiratory Rate 16 02/19/2018 12:0 7 AM EDT Oxygen Saturation 90% 02/26/2018 5:00 PM EST Inhaled Oxygen Concentration - - Weight 81.6 kg (179 lb 14.3 oz) 02/26/2018 4:14 PM EST Height 160 cm (5' 3 ) 02/26/2018 4:14 PM EST Body Mass Index 31.87 02/26/2018 4:14 PM EST Plan of Treatment Health Maintenance Due Date Last Done Comments Adult Td,Tdap Booster 1981 LIPID PANEL 1981 DEPRESSION SCREENING 1993 HEPATITIS C SCREENING 10/19/1999 HIV ONE-TIME SCREENING (18-6 5 YEARS) 10/19/1999 COVID-19 VACCINE (2023-2 5 season) 2023 06/08/2020, 05/18/2020 SMOKING STATUS SCREENING (On ce After 26 Yrs) Completed 02/26/2018 HEPATITIS A VACCINES Aged Out No long er eligible based on patient's age to complete this topic HIB VACCINES Aged Out No longer eligi ble based on patient's age to complete this topic MENINGOCOCCAL VACCINES (ACWY) Aged Out No longer eligible based on patient's age to complete this topic MENINGOCOCCAL VACCINES (B) Aged Out N o longer eligible based on patient's age to complete this topic PNEUMOCOCCAL VACCINES (0-49 years) Aged Out No longer eligible b ased on patient's age to complete this topic Medical Devices Not on file Insurance [employer] PPO [facility] Definicare PPO [facility] Albumatic [facility] Commerce GuysPORT PPO [facility] Albumatic [facility] [facility] Techmed HealthcarePerfect Storm Media [employer] PPO [facility] Albumatic [employer] PPO [facility] Techmed HealthcareMozioPORT PPO [facility] P[facility] Care Teams Pasteuriser Operator Relationship Specialty Start Date End Date Unknown, Unknown, PCP - General 02/18/18 Additional Source Comments The information contained in this document represents components of the legal health record. It is not the complete legal health record.[facility]
== END 2024-12-06 12:00 | disposition home or self-care (01) ==
LOC: HO.HMCH 11:03
PROVIDERS: PCP Internal Medicine; Visit Provider Internal Medicine
DX: Z00.00 Encounter for general adult medical examination without abnormal findings (principal); I48.91 Unspecified atrial fibrillation; E66.9 Obesity, unspecified; Z68.35 Body mass index [BMI] 35.0-35.9, adult; I77.810 Thoracic aortic ectasia; E78.5 Hyperlipidemia, unspecified; R73.01 Impaired fasting glucose; R79.89 Other specified abnormal findings of blood chemistry; F63.81 Intermittent explosive disorder; B35.4 Tinea corporis; B35.3 Tinea pedis

== ENCOUNTER → 2024-12-06 11:02 | Outpatient (BNVA) | payer OTHER, SELFPAY | PROVIDERS: PCP Internal Medicine; Visit Provider Internal Medicine | DX: Z00.00 Encounter for general adult medical examination without abnormal findings (principal); I48.91 Unspecified atrial fibrillation; I77.810 Thoracic aortic ectasia; E78.5 Hyperlipidemia, unspecified; R73.01 Impaired fasting glucose; R79.89 Other specified abnormal findings of blood chemistry; F63.81 Intermittent explosive disorder; B35.4 Tinea corporis; B35.3 Tinea pedis; E66.9 Obesity, unspecified; E78.00 Pure hypercholesterolemia, unspecified; D64.9 Anemia, unspecified; Z68.35 Body mass index [BMI] 35.0-35.9, adult; Z79.899 Other long term (current) drug therapy | CPT/HCPCS: 99396 ==

== ENCOUNTER → 2024-12-10 09:41 | Outpatient (REF) | payer OTHER, SELFPAY ==
--- NOTE | ~2024-12-10 | NM_ITS ---
Lexiscan Myocardial perfusion study Indication: Abnormal EKG to evaluate for myocardial ischemia Technique: The patient was brought in for a Lexiscan perfusion study on 12/10/2024 and was injected 0.4 mg of Lexiscan intravenously. Within a minute of this injection 35 mCi of sestamibi was given intravenously. Images were obtained using the SPECT gamma camera interlaced with the gating device. Images were obtained in supine position. Resting perfusion study was performed on 12/12/2024. Patient was administered 35 mCi of sestamibi intravenously at rest. Images were then obtained in supine position. Images obtained without without significant. Total DLP 153 mGy-cm. Images were processed with the software and compared side to side in short axis, horizontal long axis and vertical long axis views. Findings: The stress perfusion study showed nonattenuated images show mildly reduced uptake in the septum and anteroseptal wall of the LV myocardium. Remainder of the LV myocardium is normally perfused. Attenuated corrected images also shows mildly reduced uptake in the septum and anteroseptal wall of the LV myocardium. The gated study shows normal LV systolic function with calculated LVEF of 63%. LV cavity is mildly to moderately dilated in size. The gated study shows normal wall thickening and contraction of segments. Resting study shows improved uptake in the septum and anteroseptal wall of the LV myocardium.. Gating at rest reveals normal systolic wall motion with ejection fraction at 67%. The findings are consistent with mild intensity septal anteroseptal ischemia. NM/NM cardiolite stress test Impression: 1. Myocardial perfusion imaging study shows mild intensity septal anteroseptal ischemia 2. Gated LVEF is 63% 3. Transient ischemic dilatation not present but LV cavity is dilated Nondiagnostic changes on EKG. Electronically signed by: Artis Perez MD 12/12/2024 05:43 PM EDT
--- NOTE | 2024-12-10 10:36 | CA_ITS ---
Acquisition Time: 2024-12-10 09:59:11 Total Exercise Time: 00:02:00 Test Indications: ABN EKG Medications: SEE H&P Protocol: LEXISCAN Max HR: 78 BPM 44% of Pred: 177 BPM Max BP: 116/64 mmHG Max Work Load: 1.0 METS Pharmacological stress test with Lexiscan while pt swings his legs in chair, with reports of SOB and abdominal discomfort, without any arrythmias, with normotensive response to injection. Nondiagnostic EKG for ischemia. In recovery, pt slowly feeling back to baseline. Nuclear images pending. Test reviewed with Dr. Perez. Referred By: Marily Vela Electronically Signed By: Constantine Montes
--- OUTSIDE RECORDS SUMMARY | 2024-12-10 10:47 | XMS_ITS | Clinical Summary ---
Author Organization [facility] Address [address] [place] [address] [place] [phone] Phone Care Team Providers Care Boiling Off Winder Name Role Phone Unknown, Unknown Primary Care [...] topic Medical Devices Not on file Insurance [employer] PPO [facility] Virtual Paper PPO [facility] Look[employer]els [employer] PPO [facility] Dialectica[facility] PPO [facility] Lookinhotels [facility] ModacruzDoutíssima [employer] PPO [facility] Look[employer]hotels [employer] PPO [facility] ModacruzSnapwirePORT PPO [facility] P[facility] Care Teams Boiling Off Winder Relationship Specialty Start Date End Date Unknown, Unknown, PCP - General 02/18/18 Additional Source Comments The information contained in this document represents components of the legal health record. It is not the complete legal health record.[facility]
== END ==
LOC: HO.CARD 09:41
PROVIDERS: PCP Internal Medicine; Visit Provider Nurse Practitioner Family
DX: I48.91 Unspecified atrial fibrillation (principal); R94.31 Abnormal electrocardiogram [ECG] [EKG]
CPT/HCPCS: 78452; 93017; A9500; J0280; J2785

== ENCOUNTER → 2024-12-10 10:36 | Outpatient (BNV) | payer OTHER, SELFPAY | PROVIDERS: PCP Internal Medicine | DX: R94.31 Abnormal electrocardiogram [ECG] [EKG] (principal) | CPT/HCPCS: 78452; 93016; 93018 ==

== ENCOUNTER 2025-01-07 12:48 | Outpatient (AMB) | payer OTHER, SELFPAY ==
--- NOTE | 2025-01-07 12:51 | A.OFFVIS_ITS ---
Vital Signs 01/07/25 12:54 Height 5 ft 8 in Weight 233 lb BMI 35.4 Intake Visit Reasons: tinia pedia Intake Note: Samuel is a 44 year old male who presents to the office today as a new patient visit referred by his PCP Dr. Castro for Tinea pedis. Pt states he does not have pain at this time. Patient is a poor historian unable to gather information at this time Allergies Penicillins (PENICILLINS) Allergy (Unknown, Verified 12/06/24 11:14) RASH Medication List - Last Reconciled 01/07/25 by Efrain Flores DPM acetaminophen ER (Tylenol 8 Hour) 650 mg PO Q8H aspirin 81 mg PO DAILY atorvastatin 40 mg PO BEDTIME clotrimazole 1% 1 appl topical BID 4 weeks dextromethorphan-guaifenesin 10-200 mg/5 mL (Diabetic Tussin DM) 10 mL PO Q8H PRN diltiazem HCl CD 180 mg PO DAILY divalproex (Depakote) 750 mg PO ONCE divalproex (Depakote) 1,000 mg PO ONCE erythromycin 0.5 inches ophthalmic (eye) QID fenofibrate 54 mg PO DAILY Lactobac. rhamnosus GG-inulin 10 billion cell -200 mg ([facility] [employer] [facility]) 1 cap PO .QD lidocaine 5% 1 patch topical DAILY loratadine (Allergy Relief (loratadine)) 10 mg PO DAILY lorazepam (Ativan) 0.5 mg PO DAILY PRN miconazole nitrate 2% (Zeasorb AF) 1 appl topical BID umlzkkhp-kqv-umusdeg sulfate 4.5 mg iron (One Daily Multivitamins with Minerals) 1 tab PO DAILY nystatin (Nyamyc) 1 appl topical DAILY paroxetine HCl (Paxil) 40 mg PO DAILY polyethylene glycol 3350 (Miralax) 17 grams PO DAILY psyllium husk 0.52 grams PO TID 90 days HPI HPI tinia pedia: Details: 44-year-old male past medical history of intellectual disability, autism, presents for evaluation of elongated toenails and fungal infection to his right foot. Patient and occupational health specialist bedside no not the best historian. As per medical chart review, the patient has a history of athlete's foot and was prescribed clotrimazole ointment. The patient's occupational health specialist is unsure if the patient is currently taking it, and the medication was not noted to be in his paper chart presented at visit today. Otherwise, patient's occupational health specialist notes the patient is able to ambulate unassisted with a slow unsteady gait however unassisted. At this time, the patient denies any pedal complaints. [facility] Medical History (Updated 01/07/25 @ 13:27 by Efrain Flores DPM) Aortic valve calcification Atrial flutter Hospital discharge follow-up Intellectual disability Intermittent explosive disorder in adult Autism Anxiety Surgical History (Updated 12/06/24 @ 11:18 by SOLIS Cr) No pertinent past surgical history Social History Housing: Other (Group) Alcohol intake: never Patient Tobacco Use Status: Never used Tobacco e-Cigarette/Vaping Use: Never Used Second Hand Smoke Exposure: No service: No Cognitive needs: No Hearing needs: No Vision needs: No Review of Systems Const Unobtainable due to mental condition Physical Exam Vital Signs: BMI result Body Mass Index 35.4 Extrem Other: *Bilateral Lower Extremity Focused Exam Vascular: DP/PT 2/4, CFT less than 3 seconds all digits, temperature gradient warm to cool, no pedal edema. Derm: Annular scaling to the plantar aspect of the right foot. Dry xerosis to plantar heel. Neuro: Protective sensation appears grossly intact to bilateral lower extremities. MSK: Patient able to perform passive range of motion to his ankles.. Rigid dorsiflexion limitation at 0 degrees bilaterally. Subtalar joint inversion eversion on instructed. Patient unable to understand cues for manual muscle strength testing. Right ankle appears to be in equino-varus and resting inversion. The ankle reduces to neutral on manual manipulation. Bilateral cavus feet, right worse than left. Office Procedures AMB Debridement/Avulsion Podia Details: All elongated, thickened, discolored toenails x 10 using a sterile nail nipper. The patient tolerated the procedure well with no complications. Class B findings as per physical exam findings above. 05355-Hvqoymwdvyw of Nail 6+ (Debrided nails bilaterally x 10.) Procedure code (CPT) selection complete Assessment & Plan Assessment & Plan (1) Tinea unguium: Code(s): B35.1 - Tinea unguium Category: Medical Plan: * All elongated, thickened, discolored toenails x 10 using a sterile nail nipper. The patient tolerated the procedure well with no complications. * Class B findings as per physical exam findings above. * The patient has a diagnosis of intellectual disability and presents with elongated, thickened toenails. Due to his intellectual disability, the patient is at increased risk for complications and has difficulty with self-care. Debridement of elongated toenails is medically necessary to prevent development of pressure-related lesions, reduce risk of secondary infection, and maintain foot health in her high-risk comorbidities. * Follow up in 9 weeks. (2) Tinea pedis: Code(s): B35.3 - Tinea pedis Category: Medical Qualifiers: Laterality: right Qualified Code(s): B35.3 - Tinea pedis Plan: * Rx clotrimazole ointment to be applied to right foot daily. (3) Gait difficulty: Code(s): R26.9 - Unspecified abnormalities of gait and mobility Category: Medical Plan: * The patient is able to ambulate without falls/risk injury at this time. * Will monitor for changes and consider an AFO to the right lower extremity in the future. The patient would require a full biomechanical exam including measurement for limb length discrepancy. (4) Intermittent explosive disorder in adult: Code(s): F63.81 - Intermittent explosive disorder Category: Medical Plan: * Will require routine foot care due to intellectual disability Orders: Orders AMB Debridement/Avulsion Podiatry Today B35.1 - Tinea unguium, F63.81 - Intermittent explosive disorder Medications: New clotrimazole 1% (Antifungal (clotrimazole)) 1 appl topical BID 30 grams 3RF 4 weeks B35.3 - Tinea pedis Coding Level of Care Code New Pt Level 3 (72707) Diagnoses Tinea unguium B35.1 Tinea pedis of right foot B35.3 Laterality: right Gait difficulty R26.9 Intermittent explosive disorder in adult F63.81 CPT Codes Skin Debridement - CPT: 92035-Rygxbnxofqq of Nail 6+ ([id number]) Time Spent (min) 30
[2025-01-07 12:54] VITALS: BMI 35.4
--- OUTSIDE RECORDS SUMMARY | 2025-01-07 16:44 | XMS_ITS | Clinical Summary ---
Author Organization [facility] Address [address] [place] [address] [place] [id number] Phone Care Team Providers Care Retort Unloader Name Role Phone Unknown, Unknown Primary Care [...] HIV ONE-TIME SCREENING (18-6 5 YEARS) 10/19/1999 INFLUENZA VACCINE (#1) 2024 03/25/2020 COVID-19 VACCINE (2024-2 6 season) 2024 06/08/2020, 05/18/2020 SMOKING STATUS SCREENING (On ce [...] topic Medical Devices Not on file Insurance [employer] [facility] [employer] [place] [place] [facility] [employer] [place] [facility] [employer] [facility] [employer] [place] [facility] [employer] [facility] [place] [facility] [place] [facility] [place] [facility] Care Teams Retort Unloader Relationship Specialty Start Date End Date Unknown, Unknown, PCP - General 02/18/18 Additional Source Comments The information contained in this document represents components of the legal health record. It is not the complete legal health record.[facility]
== END 2025-01-07 13:10 | disposition home or self-care (01) ==
LOC: HO.HPODS 12:48
PROVIDERS: PCP Internal Medicine; Visit Provider Student in an Organized Health Care Education/Training Program
DX: B35.1 Tinea unguium (principal); B35.3 Tinea pedis; R26.9 Unspecified abnormalities of gait and mobility; F63.81 Intermittent explosive disorder
CPT/HCPCS: 11721; 99203

== ENCOUNTER → 2025-01-07 12:48 | Outpatient (BNVA) | payer OTHER, SELFPAY | PROVIDERS: PCP Internal Medicine; Visit Provider Student in an Organized Health Care Education/Training Program | DX: B35.1 Tinea unguium (principal); B35.3 Tinea pedis; L60.2 Onychogryphosis; L60.8 Other nail disorders; R26.9 Unspecified abnormalities of gait and mobility; F84.0 Autistic disorder; F63.81 Intermittent explosive disorder | CPT/HCPCS: 11721; 99202 ==

== ENCOUNTER 2025-01-29 10:16 | Outpatient (AMB) | payer OTHER, SELFPAY ==
[2025-01-29 10:18] VITALS: BMI 35.0
--- NOTE | 2025-01-29 10:18 | MHC.AMNUTRGE ---
VS Expanded 01/29/25 10:18 Height 5 ft 8 in Weight 230 lb 2.601 oz BMI 35.0 Intake Visit Reasons: Obesity, unspecified Allergies Penicillins (PENICILLINS) Allergy (Unknown, Verified 12/06/24 11:14) RASH Nutrition Presentation Details: Pt presents for MNT for obesity Pt presents accompanied by staff Staff reports they are working on making lower fat meals at the house, Pt likes to choose high sugar and high fat foods when eating out once /wk Typical intake Breakfast eggs 2-3 no bread with milk Lunch: chicken boiled , bb1 sauce , steamed rice, broccoli, 2% milk dinner: fast food (fries/burger) and large vanilla shake beverages: water, apple juice , milk food frequency fruits: 2/d ve-2/day dairy 4+/d fish: 0-1/wk starches :30+/d physical activity: ADL , have a treadmill but not using it UXD-Vzbfudg-Fx.Jeor Equation Height: 5 ft 8 in Weight: 230 lb Resting Metabolic Rate: 1915.16 Calculated Activity Level: Sedentary Calories Needed to Maintain Weight: 2298.19 Diagnosis Nutrition problem #1: overweight/obesity As related to (etiology) #1: diagnosis As evidenced by (sign/symptom) #1: high BMI (35 (02/15)) and knowledge deficit of diet [facility] Medical History (Updated 02/10/25 @ 09:53 by Madyson Mccarty, RD, LDN) Aortic valve calcification Atrial flutter Hospital discharge follow-up Intellectual disability Intermittent explosive disorder in adult Autism Anxiety Surgical History (Updated 12/06/24 @ 11:18 by SOLIS Cr) No pertinent past surgical history Social History Housing: Other (Group) Alcohol intake: never Patient Tobacco Use Status: Never used Tobacco e-Cigarette/Vaping Use: Never Used Second Hand Smoke Exposure: No service: No Cognitive needs: No Hearing needs: No Vision needs: No Assessment & Plan Assessment & Plan (1) Obesity (BMI 30-39.9): Comment: Hx of IFG Code(s): E66.9 - Obesity, unspecified Category: Medical Plan: current wt: 104 kg (10/25 ) est kcal needs as per MSJ: 2300 est protein needs as per 1 g/kg BW: 100 est fluid needs as per 30 ml/kg BW: 3100 Recommended fiber > 12 g /day and gradually increase up to 25-28 g /day or as tolerated Nutrition topics discussed : Reviewed (R), Pt verbalized understanding (V) , not applicable (N/A) R, : Healthy Plate Method Concept: DISCUSSED REDUCING PORTION SIZES and SUGAR INTAKE R, V, N/A: Carbohydrates: food sources of carbohydrates, relationship of carbohydrates to blood glucose, fatty liver GI health. Recommended total amount of carbohydrates per meals and snack. Differences between simple carbohydrates and complex carbohydrates R, V, N/A: Lean protein foods including vegan , vegetarian sources of protein. Benefits of protein (including but not limited to healing, nutritional value , benefits in weight loss, glucose control R, V, N/A: Fats : Source of fats, benefits of fats. Difference between saturated and unsaturated fats. Saturated fats and its contribution to inflammation R, V, N/A: Fiber: food sources and role of fiber in the diet (including but not limited to its role as a prebiotic, benefits in constipation, role in IBS , role in glucose control and cholesterol level) R, V, N/A: Hydration: role of hydration and prevention of dehydration or over hydration. Foods and water content. R, V, N/A: Vitamins and Minerals in foods and supplements R, V, N/A: Interpreting food labels, including serving size, macronutrients, vitamins, minerals, allergens, ingredient list , % daily value Patient Instructions: Cut down on sugar intake by Choosing smaller size smoothie follow healthy plate method engage in walking 30 minutes 3 times week Coding Level of Care Code Nutr Indiv Intake (08662) Diagnoses Obesity (BMI 30-39.9) E66.9 Time Spent (min) 30
[2025-02-10 09:55] VITALS: BMI 35.0
== END 2025-01-29 10:47 | disposition home or self-care (01) ==
LOC: HO.ENCR 10:16
PROVIDERS: PCP Internal Medicine; Visit Provider Dietitian, Registered
DX: E66.9 Obesity, unspecified (principal)

== ENCOUNTER → 2025-01-29 10:16 | Outpatient (BNVA) | payer OTHER, SELFPAY | PROVIDERS: PCP Internal Medicine; Visit Provider Dietitian, Registered | DX: Z71.3 Dietary counseling and surveillance (principal); E66.9 Obesity, unspecified | CPT/HCPCS: 97802 ==

== ENCOUNTER 2025-03-10 10:45 | Outpatient (AMB) | payer OTHER, SELFPAY ==
[2025-03-10 10:59] VITALS: BMI 35.0
--- NOTE | 2025-03-10 10:59 | MHC.OFFVIS ---
Vital Signs 03/10/25 10:59 Height 5 ft 8 in Weight 230 lb BMI 35.0 Intake Visit Reasons: Follow Up tinia pedia Intake Note: Samuel is a 44 year old male who presents today for a follow up on his Tinea unguium. At his last visit his toe nails where debrided and he was prescribed Clotrimazole 1%. Patient reports he has been using the medication as prescribed and his toe nails have remained the same. Allergies Penicillins (PENICILLINS) Allergy (Unknown, Verified 03/10/25 11:00) RASH HPI HPI Follow Up tinia pedia: Details: 44-year-old male past medical history of intellectual disability, autism, presents for follow up evaluation of elongated toenails and fungal infection to his right foot. The patient's vp information technology states that they have been applying the topical clotrimazole ointment daily however they have not seen resolution of his symptoms. He is also complaining of dryness and swelling to his right heel. History: Patient and vp information technology bedside no not the best historian. As per medical chart review, the patient has a history of athlete's foot and was prescribed clotrimazole ointment. The patient's vp information technology is unsure if the patient is currently taking it, and the medication was not noted to be in his paper chart presented at visit today. Otherwise, patient's vp information technology notes the patient is able to ambulate unassisted with a slow unsteady gait however unassisted. At this time, the patient denies any pedal complaints. [facility] Medical History (Updated 03/10/25 @ 11:28 by Efrain Flores DPM) Aortic valve calcification Atrial flutter Hospital discharge follow-up Intellectual disability Intermittent explosive disorder in adult Autism Anxiety Surgical History (Updated 12/06/24 @ 11:18 by SOLIS Cr) No pertinent past surgical history Social History Housing: Other (Group) Alcohol intake: never Patient Tobacco Use Status: Never used Tobacco e-Cigarette/Vaping Use: Never Used Second Hand Smoke Exposure: No service: No Cognitive needs: No Hearing needs: No Vision needs: No Review of Systems Const All systems reviewed & are unremarkable except as noted in HPI and below Physical Exam Vital Signs: BMI result Body Mass Index 35.0 Extrem Other: *Bilateral Lower Extremity Focused Exam Vascular: DP/PT 2/4, CFT less than 3 seconds all digits, temperature gradient warm to cool, no pedal edema. Derm: Annular scaling to the plantar aspect of the bilateral feet, mildly improved to the right foot. dry xerosis to plantar heel. Dystrophic, thickened, elongated, discolored toenails x 10 bilateral feet. Nails grow vertically. Neuro: Protective sensation appears grossly intact to bilateral lower extremities. MSK: Patient able to perform passive range of motion to his ankles.. Rigid dorsiflexion limitation at 0 degrees bilaterally. Subtalar joint inversion eversion on instructed. Patient unable to understand cues for manual muscle strength testing. Right ankle appears to be in equino-varus and resting inversion. The ankle reduces to neutral on manual manipulation. Bilateral cavus feet, right worse than left. Office Procedures AMB Debridement /Avulsion Details: Procedure: Nail debridement Location: 10 nails, bilateral feet Anesthesia: N/A Description: The affected toenails were cleansed with an antiseptic solution. Using sterile nail nippers and a rotary maynor, dystrophic and mycotic nail material was carefully debrided and reduced in thickness. Care was taken to avoid trauma to the surrounding skin and nail bed. All debris was removed as tolerated. The area was inspected for signs of infection or ulceration. Patient tolerated the procedure well without complications. Tolerance: Patient tolerated procedure well, no immediate complications. Class B findings as per physical exam findings above. The patient has an intellectual disability. The patient can not provide any self-care. Thus, the patient is at increased risk for complications such as ulceration, infection, and difficulty with self-care. Debridement of elongated toenails is medically necessary to prevent development of pressure-related lesions, reduce risk of secondary infection, and maintain foot health. [id number]-Pptqczsgcbj of Nail 6+ Procedure code (CPT) selection complete Assessment & Plan Assessment & Plan (1) Tinea unguium: Code(s): B35.1 - Tinea unguium Category: Medical Plan: All elongated, thickened, discolored toenails x 10 using a sterile nail nipper. The patient tolerated the procedure well with no complications. Class B findings as per physical exam findings above. The patient has a diagnosis of intellectual disability and presents with elongated, thickened toenails. Due to his intellectual disability, the patient is at increased risk for complications and has difficulty with self-care. Debridement of elongated toenails is medically necessary to prevent development of pressure-related lesions, reduce risk of secondary infection, and maintain foot health. Follow up in 9 weeks. (2) Tinea pedis: Code(s): B35.3 - Tinea pedis Category: Medical Qualifiers: Laterality: right Qualified Code(s): B35.3 - Tinea pedis Plan: The patient failed clotrimazole ointment. Rx terbinafine. (3) Gait difficulty: Code(s): R26.9 - Unspecified abnormalities of gait and mobility Category: Medical Plan: The patient is able to ambulate without falls/risk injury at this time. Will monitor for changes and consider an AFO to the right lower extremity in the future. The patient would require a full biomechanical exam including measurement for limb length discrepancy. (4) Intermittent explosive disorder in adult: Code(s): F63.81 - Intermittent explosive disorder Category: Medical Plan: Will require routine foot care due to intellectual disability (5) Fissure in skin of both feet: Code(s): R23.4 - Changes in skin texture Category: Medical Plan: Rx Urea cream 40% Medications: New terbinafine HCl 1% (Athlete's Foot (terbinafine)) Apply to the bottom of feet twice a day. 1 appl topical BID 30 grams 3RF athlete's foot urea 40% Apply to bottom of heels 1 appl topical BID 28.35 grams 5RF Heel fissure Coding Level of Care Code New Pt Level 4 (08865) Diagnoses Tinea unguium B35.1 Tinea pedis of right foot B35.3 Laterality: right Gait difficulty R26.9 Intermittent explosive disorder in adult F63.81 Fissure in skin of both feet R23.4 Time Spent (min) 10
== END 2025-03-10 11:23 | disposition home or self-care (01) ==
LOC: HO.HPODS 10:45
PROVIDERS: PCP Internal Medicine; Visit Provider Student in an Organized Health Care Education/Training Program
DX: B35.1 Tinea unguium (principal); B35.3 Tinea pedis; R26.9 Unspecified abnormalities of gait and mobility; F63.81 Intermittent explosive disorder; R23.4 Changes in skin texture
CPT/HCPCS: 99214

== ENCOUNTER → 2025-03-10 10:45 | Outpatient (BNVA) | payer OTHER, SELFPAY | PROVIDERS: PCP Internal Medicine; Visit Provider Student in an Organized Health Care Education/Training Program | DX: B35.1 Tinea unguium (principal); B35.3 Tinea pedis; R26.9 Unspecified abnormalities of gait and mobility; F63.81 Intermittent explosive disorder; R23.4 Changes in skin texture | CPT/HCPCS: 99212 ==

== ENCOUNTER 2025-03-13 11:05 | Outpatient (AMB) | payer OTHER, SELFPAY ==
[2025-03-13 11:07] VITALS: BP 128/80; PULSE 61; TEMP 36.3; O2SAT 96; BMI 34.1
--- NOTE | 2025-03-13 11:07 | A.OFFPC_ITS ---
Vital Signs 03/13/25 11:07 Height 5 ft 8 in Weight 224 lb 6 oz BMI 34.1 BP 128/80 Blood Pressure Location Lt brachial Position Sitting Pulse 61 Pulse Source Pulse Oximeter Temp 97.3 F Temp Source Temporal Artery Scan Pulse Oximetry (%) 96 Oxygen Delivery Method Room Air Intake Visit Reasons: IGT, obesity Intake Note: Patient is here today for a physical. Hydroelectric Station Operator Required: No Tire Mold Engraver: Present Accompanied by: staff Allergies Penicillins (PENICILLINS) Allergy (Unknown, Verified 03/13/25 11:29) RASH Medication List - Last Reconciled 03/13/25 by Opal Cedillo PA-C acetaminophen ER (Tylenol 8 Hour) 650 mg PO Q8H aspirin 81 mg PO DAILY atorvastatin 40 mg PO BEDTIME clotrimazole 1% 1 appl topical BID 4 weeks clotrimazole 1% (Antifungal (clotrimazole)) 1 appl topical BID 4 weeks dextromethorphan-guaifenesin 10-200 mg/5 mL (Diabetic Tussin DM) 10 mL PO Q8H PRN diltiazem HCl CD 180 mg PO DAILY divalproex (Depakote) 750 mg PO ONCE divalproex (Depakote) 1,000 mg PO ONCE erythromycin 0.5 inches ophthalmic (eye) QID fenofibrate 54 mg PO DAILY Lactobac. rhamnosus GG-inulin 10 billion cell -200 mg ([facility]) 1 cap PO .QD lidocaine 5% 1 patch topical DAILY loratadine (Allergy Relief (loratadine)) 10 mg PO DAILY PRN lorazepam (Ativan) 0.5 mg PO DAILY PRN miconazole nitrate 2% (Zeasorb AF) 1 appl topical BID nqyshuyt-akf-djhzxrn sulfate 4.5 mg iron (One Daily Multivitamins with Minerals) 1 tab PO DAILY nystatin (Nyamyc) 1 appl topical DAILY paroxetine HCl (Paxil) 40 mg PO DAILY polyethylene glycol 3350 (Miralax) 17 grams PO DAILY psyllium husk 0.52 grams PO TID 90 days terbinafine HCl 1% (Athlete's Foot (terbinafine)) 1 appl topical BID urea 40% 1 appl topical BID Tobacco use date assessed: 12/06/24 Dental Screening Dental Screen Date: 08/09/24 Did you have a dental visit in the last 12 months?: Yes Did you have a dental problem in the last 6 months where you did not have access to dental care?: No Was dental information given to patient?: Patient has dentist HPI IGT, obesity HPI Details 44 year old male with past medical histo ry of aortic insufficiency, hyperlipidemia, Afib, impaired fasting glucose, obesity last seen 11/2024 coming in for follow up. He was seen by podiatry 02/2025 continued with topical terbinifine. Presenting for a follow-up visit for management of multiple chronic conditions. The patient has been actively working on weight management with a road boss and has lost 9 pounds since the last visit. The patient is following up with a senior data integration developer. A phototypesetting equipment monitor has scheduled the patient for a stress test, which has not yet been completed. In terms of mental health, the patient is no longer seeing a psychiatrist or counselor, and Dr. Castro is managing the patient's medications. [facility] Medical History Aortic valve calcification Atrial flutter Hospital discharge follow-up Intellectual disability Intermittent explosive disorder in adult Autism Anxiety Surgical History No pertinent past surgical history Social History Housing: Other (Group) Alcohol intake: never Patient Tobacco Use Status: Never used Tobacco e-Cigarette/Vaping Use: Never Used Second Hand Smoke Exposure: No service: No Cognitive needs: No Hearing needs: No Vision needs: No Questionnaire PHQ-9 Over the last 2 weeks, how often have you been bothered by any of the following problems? 1. Little interest or pleasure in doing things: not at all 2. Feeling down, depressed, or hopeless: not at all 3. Trouble falling or staying asleep, or sleeping too much: not at all 4. Feeling tired or having little energy: not at all 5. Poor appetite or overeating: not at all 6. Feeling bad about yourself - or that you are a failure or have let yourself or your family down: not at all 7. Trouble concentrating on things, such as reading the newspaper or watching television: not at all 8. Moving or speaking so slowly that other people could have noticed. Or the opposite - being so fidgety or restless that you have been moving around a lot more than usual: not at all 9. Thoughts that you would be better off or of hurting yourself in some way: not at all Total score: 0 Depression Screening Interpretation: Negative Depression Screening Done: Yes Source: Developed by Drs. Bib Cooley, Marla Morris, Rashel Light and colleagues, with an educational jenaro from [employer]. Thrive Questionnaire Date Thrive assessed: 08/09/24 I am a: Patient What is your living situation today?: I have a steady place to live Within the past 12 months, did the food you bought not last and you didn't have the money to get more?: Never true Within the past 12 months, did you worry whether your food would run out before you got money to buy more?: Never true Do you have trouble paying for medicines?: No Do you have trouble getting transportation to medical appointments?: No Do you have trouble paying your heating and electricity bill?: No Do you have trouble taking care of your child, family member or friend?: No Do you have trouble with day-to-day activities such as bathing, preparing meals, shopping, managing finances, etc.?: No Are you currently unemployed and looking for a job?: No Are you interested in more education?: No Please select the resources that you would like help with: None THRIVE Score: 0 AUDIT C Alcohol Use Questionnaire (AUDIT-C) 1. How often do you have a drink containing alcohol?: Never Total Score: 0 JANAE-7 AMB Questionnaire JANAE-7 Date JANAE - 7 assessed: 08/09/24 Feeling nervous, anxious, or on edge: 1 = Several days Not being able to stop or control worryin = Several days Worrying too much about different things: 1 = Several days Trouble relaxin = Several days Being so restless that it is hard to sit still: 0 = Not at all Becoming easily annoyed or irritable: 1 = Several days Feeling afraid as if something awful might happen: 1 = Several days Total JANAE-7 score (0-4 normal; 5-9 mild; 10-14 moderate; 15-21 severe): 6 Source: Developed by Marla ArguetaW. Arturo, Rashel Light and colleagues, with an educational jenaro from [employer]. Review of Systems Const Denies fever(s), Denies headache(s) and Denies poor appetite Eyes Reports no additional complaints ENT Denies dizziness and Denies headache(s) Card Denies chest pain, Denies lightheadedness and Denies dyspnea Resp Denies cough and Denies dyspnea GI Denies abdominal pain, Denies nausea and Denies vomiting Reports no additional complaints Musc Reports no additional complaints and Denies abnormal gait Skin/Breast Reports system reviewed and no additional complaints, except as documented Neuro Denies abnormal gait, Denies dizziness and Denies headache(s) Psych Reports no additional complaints Physical exam (Primary Care) Vital Signs: Last Vital Signs Temp 97.3 F 03/13/25 11:07 Pulse 61 03/13/25 11:07 BP 128/80 03/13/25 11:07 Pulse Ox 96 03/13/25 11:07 Oxygen Delivery Method Room Air 03/13/25 11:07 BMI result Body Mass Index 34.1 Tobacco/Smoking Status: Tobacco use Status Tobacco use date assessed 12/06/24 03/13/25 11:16 Patient Tobacco Use Status Never used Tobacco 03/13/25 11:16 e-Cigarette/Vaping Use Never Used 03/13/25 11:16 PHQ-9: PHQ-9 Score PHQ-9: Total score 0 03/13/25 11:16 Depression Screening Interpretation: Negative Thrive Assessment: Date of Thrive Assessment Date Thrive assessed 08/09/24 03/13/25 11:16 Const General: cooperative, healthy appearing, comfortable and no acute distress Orientation/consciousness: patient oriented x3 HENMT Head: Yes normocephalic Ears: hearing grossly normal bilaterally General nose exam: Normal external nose present Eyes General: appearance normal, both eyes and all related structures Conjunctivae: conjunctivae normal Neck Neck: Yes full ROM and Yes no lymphadenopathy Resp Effort & Inspection: normal respiratory effort Auscultation: clear to auscultation bilaterally, no crackles, no rales, no rhonchi and no wheezes Cardio Rate: regular rate Rhythm: regular rhythm Skin General skin exam: no rashes or lesions noted Neuro General: patient oriented x3 Gait exam (Neuro): Normal gait present Extrem General: Yes normal to inspection, Yes full ROM and No edema Psych Affect: normal affect Attitude: cooperative Insight: Good insight present (Psych) Judgement: Good judgement present (Psych) Coding Level of Care Code Est Pt Level 3 (42677) Diagnoses Atrial fibrillation I48.91 Hyperlipidemia E78.5 Impaired fasting blood sugar R73.01 Obesity (BMI 30-39.9) E66.9 Tinea unguium B35.1 Assessment & Plan Assessment & Plan (1) Atrial fibrillation: Comment: Chads Vasc score 0 no anticoagulation Code(s): I48.91 - Unspecified atrial fibrillation Category: Medical Plan: Continue to follow with cardiology. Currently asymptomatic at this time. (2) Hyperlipidemia: Code(s): E78.5 - Hyperlipidemia, unspecified Category: Medical Plan: Avoid foods that are high in cholesterol such as red meat, fried foods, eggs and baked goods. Triglyceride goal of less than 150 and LDL goal of less than 130. Reminded about blood work and given information today. (3) Impaired fasting blood sugar: Code(s): R73.01 - Impaired fasting glucose Category: Medical Plan: Decrease the amount of carbohydrates such as pasta, bread, rice, and potatoes and limit the amount of sweets. Although fruits are generally healthy they should be eaten in moderation as they are still high in sugar. Reminded about blood work and given information today regarding portion control and diet. (4) Obesity (BMI 30-39.9): Comment: Hx of IFG Code(s): E66.9 - Obesity, unspecified Category: Medical Plan: Healthy diet and regular exercise is encouraged. Continue to work with diet and nutrition and noted 9 lb weight loss. (5) Tinea unguium: Code(s): B35.1 - Tinea unguium Category: Medical Plan: Continue with podiatry. Plan This note was constructed using voice recognition software. While every effort has been made to ensure accuracy and farmworker rice, still areas may have been included sometimes these areas may affect the content or meeting of the given symptoms. Total time spent caring for the patient today was 20 minutes. This includes time spent before the visit reviewing the chart, time spent during the visit, and time spent after the visit and documentation. Patient was informed and verbally consented to the use of an ambient scribe for clinic note documentation during this visit. Orders: Referrals Ophthalmology Referral Z00.00 - Encounter for general adult medical examination without abnormal findings
--- OUTSIDE RECORDS SUMMARY | 2025-03-13 17:16 | XMS_ITS | Clinical Summary ---
Author Organization [facility] Address [address] [place] [address] [place] [phone] Phone Care Team Providers Care Principal Automation Engineer Name Role Phone Unknown, Unknown Primary Care [...] topic Medical Devices Not on file Insurance [employer] [facility] [employer] [place] P[place] [facility] [employer] [place] [facility] P[facility] PASSPORT PPO [facility] CasentricMemSQLPORT PPO [place] [facility] TheSedge.orgPORT PPO [facility] [facility]PO [place] [facility] [employer] Medical InstrumentNEW [facility] [place] [facility] P[facility] Care Teams Principal Automation Engineer Relationship Specialty Start Date End Date Unknown, Unknown, PCP - General 02/18/18 Additional Source Comments The information contained in this document represents components of the legal health record. It is not the complete legal health record.[facility]
== END 2025-03-13 11:53 | disposition home or self-care (01) ==
LOC: HO.HMCH 11:06
PROVIDERS: PCP Internal Medicine
DX: I48.91 Unspecified atrial fibrillation (principal); E78.5 Hyperlipidemia, unspecified; R73.01 Impaired fasting glucose; E66.9 Obesity, unspecified; B35.1 Tinea unguium; Z68.34 Body mass index [BMI] 34.0-34.9, adult

== ENCOUNTER → 2025-03-13 11:05 | Outpatient (BNVA) | payer OTHER, SELFPAY | PROVIDERS: PCP Internal Medicine | DX: R73.01 Impaired fasting glucose (principal); I48.91 Unspecified atrial fibrillation; E78.5 Hyperlipidemia, unspecified; E66.9 Obesity, unspecified; B35.1 Tinea unguium; Z68.34 Body mass index [BMI] 34.0-34.9, adult | CPT/HCPCS: 99212 ==

== ENCOUNTER 2025-03-18 09:55 | Outpatient (REF) | payer OTHER, SELFPAY ==
[2025-03-18 10:35] LABS: Reticulocytes Absolute 0.103 X10*6/uL (0.026-0.095)
[2025-03-18 11:14] LABS: Alanine Aminotransferase 15 U/L (0-40); Albumin Level 4.3 g/dL (3.5-5.0); Alkaline Phosphatase 36 U/L (39-117); Anion Gap 11 (12-20); Aspartate Amino Transferase 24 U/L (5-37); Blood Urea Nitrogen 22 mg/dL (9-16); Calcium 9.1 mg/dL (8.4-10.2); Carbon Dioxide 30 mmol/L (22-29); Chloride 103 mmol/L (96-108); Cholesterol 164 mg/dL (<200); Estimated Glomerular Filt Rate > 60; HDL Cholesterol 40 mg/dL (>40); Iron 95 mcg/dL (45-160); Percent Iron Saturation 27 % (15-50); Potassium 4.3 mmol/L (3.3-5.1); Sodium 140 mmol/L (135-145); Total Iron Binding Capacity 346 mcg/dL (228-428); Total Protein 7.0 g/dL (6.5-8.0); Triglycerides 150 mg/dL (<150); Unsaturated Iron Binding 251 ug/dL
[2025-03-18 11:30] LABS: HBS Num1 138.09 mIU/mL (0-7.99); HBc Num1 0.06 S/CO (0.00-0.79); HBsAGNum1 0.49 S/CO (0.00-0.99); Hepatitis B Surface Antigen Negative (Negative); ~HepC Num1 0.08 S/CO (0.00-0.79); ~Hepatitis B Surface Antibody REACTIVE (Nonreactive); ~Hepatitis C Antibody Nonreactive (Nonreactive)
[2025-03-18 11:31] LABS: Ferritin 210 ng/mL (20-250); Free T4 (Free Thyroxine) 1.05 ng/dL (0.71-1.85); Thyroid Stimulating Hormone 4.85 uIU/mL (0.32-4.0)
[2025-03-18 11:42] LABS: Folate 7.1 ng/mL (> or = 4.0); Vitamin B12 672 pg/mL (200-900)
--- OUTSIDE RECORDS SUMMARY | 2025-03-18 11:52 | XMS_ITS | Clinical Summary ---
Author Organization [facility] Address [address] [place] [address] [place] [phone] Phone Care Team Providers Care Weave Room Supervisor Name Role Phone Unknown, Unknown Primary Care [...] topic Medical Devices Not on file Insurance [employer] [facility] [employer] [place] PPO [place] [facility] [employer] [place] [place] [facility] [employer] [place] PPO [facility] PPO [facility] DOOMOROSensinodePORT PPO [place] [place] PPO [facility] [place] [facility] PPO Care Teams Weave Room Supervisor Relationship Specialty Start Date End Date Unknown, Unknown, PCP - General 02/18/18 Additional Source Comments The information contained in this document represents components of the legal health record. It is not the complete legal health record.[facility]
[2025-03-19 06:28] LABS: Rubeola IgG (Measles) >300.00 AU/mL
[2025-03-21 08:28] LABS: TS Negative Control Passed; TS Panel A 0; TS Panel B 0; TS Positive Control Passed; TSpotTB Negative (Negative)
== END 2025-03-18 09:56 | disposition home or self-care (01) ==
LOC: HO.LAB 09:55
PROVIDERS: PCP Internal Medicine; Visit Provider Internal Medicine
DX: Z01.84 Encounter for antibody response examination (principal); Z11.1 Encounter for screening for respiratory tuberculosis; Z11.59 Encounter for screening for other viral diseases; R73.01 Impaired fasting glucose; R79.89 Other specified abnormal findings of blood chemistry; E78.00 Pure hypercholesterolemia, unspecified
CPT/HCPCS: 36415; 80053; 80061; 82607; 82728; 82746; 83036; 83540; 84439; 84443; 85045; 86481; 86704; 86706; 86735; 86762; 86765; 86787; 86803; 87340

== ENCOUNTER 2025-04-09 11:10 | Outpatient (AMB) | payer OTHER, SELFPAY ==
[2025-04-09 11:18] VITALS: BMI 33.2
--- NOTE | 2025-04-09 11:18 | MHC.AMNUTRGE ---
VS Expanded 04/09/25 11:18 Height 5 ft 8 in Weight 218 lb 7.649 oz BMI 33.2 Intake Visit Reasons: obesity Allergies Penicillins (PENICILLINS) Allergy (Unknown, Verified 03/13/25 11:29) RASH Nutrition Presentation Details: Pt presents for MNT f/u for obesity Patient presents with staff from [facility]. Patient is having 2-3 meals a day including protein in each meal and working on reducing on the starches. Patient does not eat fruits and vegetables. Patient admits to having the snacks and typically snacks are chips or M&Ms. Staff reports working on reducing on the amounts empty calorie foods. Exercise routine: Patient has a treadmill and uses it once a week for 30 minutes BS Monitoring Most Recent Diabetes Results: Cholesterol, (<200) 164 mg/dL 03/18/25 HDL Cholesterol, (>40) 40 mg/dL L 03/18/25 Triglycerides, (<150) 150 mg/dL H 03/18/25 Creatinine, (0.5-1.4) 0.86 mg/dL 03/18/25 BUN, (9-16) 22 mg/dL H 03/18/25 Sodium, (135-145) 140 mmol/L 03/18/25 Potassium, (3.3-5.1) 4.3 mmol/L 03/18/25 Chloride, (96-108) 103 mmol/L 03/18/25 Carbon Dioxide, (22-29) 30 mmol/L H 03/18/25 Calcium, (8.4-10.2) 9.1 mg/dL 03/18/25 AST, (5-37) 24 U/L 03/18/25 ALT, (0-40) 15 U/L 03/18/25 Total Protein, (6.5-8.0) 7.0 g/dL 03/18/25 Albumin, (3.5-5.0) 4.3 g/dL 03/18/25 QLF-Yxoxkuy-Ti.Jeor Equation Height: 5 ft 8 in Weight: 218 lb Resting Metabolic Rate: 1860.78 Calculated Activity Level: Sedentary Calories Needed to Maintain Weight: 2232.94 [facility] Medical History Aortic valve calcification Atrial flutter Hospital discharge follow-up Intellectual disability Intermittent explosive disorder in adult Autism Anxiety Surgical History No pertinent past surgical history Social History Housing: Other (Group) Alcohol intake: never Patient Tobacco Use Status: Never used Tobacco e-Cigarette/Vaping Use: Never Used Second Hand Smoke Exposure: No service: No Cognitive needs: No Hearing needs: No Vision needs: No Assessment & Plan Assessment & Plan (1) Obesity (BMI 30-39.9): Comment: Hx of IFG Code(s): E66.9 - Obesity, unspecified Category: Medical Plan: current wt: 104 kg (02/15 ), 99kg (04/17) est kcal needs as per MSJ: 2200 est protein needs as per 1 g/kg BW: 100 est fluid needs as per 30 ml/kg BW: 3000 Recommended fiber > 12 g /day and gradually increase up to 25-28 g /day or as tolerated Nutrition topics discussed : Reviewed (R), Pt verbalized understanding (V) , not applicable (N/A) R, : Healthy Plate Method Concept: DISCUSSED REDUCING PORTION SIZES and SUGAR INTAKE R, V, N/A: Carbohydrates: food sources of carbohydrates, relationship of carbohydrates to blood glucose, fatty liver GI health. Recommended total amount of carbohydrates per meals and snack. Differences between simple carbohydrates and complex carbohydrates R, V, N/A: Lean protein foods including vegan , vegetarian sources of protein. Benefits of protein (including but not limited to healing, nutritional value , benefits in weight loss, glucose control R, V, N/A: Fats : Source of fats, benefits of fats. Difference between saturated and unsaturated fats. Saturated fats and its contribution to inflammation R, : Fiber: food sources and role of fiber in the diet (including but not limited to its role as a prebiotic, benefits in constipation, role in IBS , role in glucose control and cholesterol level) R, V, N/A: Hydration: role of hydration and prevention of dehydration or over hydration. Foods and water content. R, V, N/A: Vitamins and Minerals in foods and supplements R, V, N/A: Interpreting food labels, including serving size, macronutrients, vitamins, minerals, allergens, ingredient list , % daily value Patient Instructions: Have 1-2 fruits with protein at dinnertime Engage in physical activity 30 minutes, 3 times a week Coding Level of Care Code Nutr Indiv Subseq (31127) Diagnoses Obesity (BMI 30-39.9) E66.9 Time Spent (min) 30
[2025-04-09 14:39] VITALS: BMI 33.1
--- OUTSIDE RECORDS SUMMARY | 2025-04-09 14:50 | XMS_ITS | Clinical Summary ---
Author Organization [facility] Address [address] [place] [address] [place] [phone] Phone Care Team Providers Care Compensation Agent Name Role Phone Unknown, Unknown Primary Care [...] topic Medical Devices Not on file Insurance [employer] [facility] [employer] [place] PPO [place] [facility] [employer] [place] [facility] [employer] [place] PPO [facility] PPO [facility] [employer])Hivelocity[employer] PPO [place] [facility] XenithPORT PPO [place] [facility] [place] [facility]PO [place] [facility] P[facility] Care Teams Compensation Agent Relationship Specialty Start Date End Date Unknown, Unknown, PCP - General 02/18/18 Additional Source Comments The information contained in this document represents components of the legal health record. It is not the complete legal health record.[facility]
== END 2025-04-09 11:42 | disposition home or self-care (01) ==
LOC: HO.ENCR 11:10
PROVIDERS: PCP Internal Medicine; Visit Provider Dietitian, Registered
DX: E66.9 Obesity, unspecified (principal)

== ENCOUNTER → 2025-04-09 11:10 | Outpatient (BNVA) | payer OTHER, SELFPAY | PROVIDERS: PCP Internal Medicine; Visit Provider Dietitian, Registered | DX: E66.9 Obesity, unspecified (principal); Z68.33 Body mass index [BMI] 33.0-33.9, adult; Z71.3 Dietary counseling and surveillance | CPT/HCPCS: 97803 ==